=== PATIENT | female | born 1960 | race Caucasian/White ===

== ENCOUNTER → 2020-05-17 13:50 | Outpatient (BNVA) | payer MEDICARE, MEDICAID, SELFPAY | PROVIDERS: PCP Nurse Practitioner Family; Visit Provider Internal Medicine | DX: Z95.2 Presence of prosthetic heart valve (principal); Z51.81 Encounter for therapeutic drug level monitoring; Z79.01 Long term (current) use of anticoagulants | CPT/HCPCS: 85610 ==

== ENCOUNTER → 2020-06-05 13:46 | Outpatient (BNVA) | payer MEDICARE, MEDICAID, SELFPAY | PROVIDERS: PCP Nurse Practitioner Family; Visit Provider Internal Medicine | DX: Z95.2 Presence of prosthetic heart valve (principal); Z51.81 Encounter for therapeutic drug level monitoring; Z79.01 Long term (current) use of anticoagulants | CPT/HCPCS: 85610; 99211 ==

== ENCOUNTER → 2020-06-26 13:30 | Outpatient (BNVA) | payer MEDICARE, MEDICAID, SELFPAY | PROVIDERS: PCP Nurse Practitioner Family; Visit Provider Internal Medicine | DX: Z95.2 Presence of prosthetic heart valve (principal); Z51.81 Encounter for therapeutic drug level monitoring; Z79.01 Long term (current) use of anticoagulants | CPT/HCPCS: 85610; 99211 ==

== ENCOUNTER → 2020-07-18 13:40 | Outpatient (BNVA) | payer MEDICARE, MEDICAID, SELFPAY | PROVIDERS: PCP Nurse Practitioner Family; Referring Provider Nurse Practitioner Family; Visit Provider Internal Medicine | DX: Z95.2 Presence of prosthetic heart valve (principal); Z51.81 Encounter for therapeutic drug level monitoring; Z79.01 Long term (current) use of anticoagulants | CPT/HCPCS: 85610; 99211 ==

== ENCOUNTER → 2020-08-01 13:24 | Outpatient (BNVA) | payer MEDICARE, MEDICAID, SELFPAY | PROVIDERS: PCP Nurse Practitioner Family; Visit Provider Internal Medicine | DX: Z95.2 Presence of prosthetic heart valve (principal); Z79.01 Long term (current) use of anticoagulants; Z51.81 Encounter for therapeutic drug level monitoring | CPT/HCPCS: 85610; 99211 ==

== ENCOUNTER → 2020-08-27 13:21 | Outpatient (BNVA) | payer MEDICARE, MEDICAID, SELFPAY | PROVIDERS: PCP Nurse Practitioner Family; Visit Provider Internal Medicine | DX: Z95.2 Presence of prosthetic heart valve (principal); Z51.81 Encounter for therapeutic drug level monitoring; Z79.01 Long term (current) use of anticoagulants | CPT/HCPCS: 85610; 99211 ==

== ENCOUNTER → 2020-09-26 13:41 | Outpatient (BNVA) | payer MEDICARE, MEDICAID, SELFPAY | PROVIDERS: PCP Nurse Practitioner Family; Visit Provider Internal Medicine | DX: Z95.2 Presence of prosthetic heart valve (principal); Z51.81 Encounter for therapeutic drug level monitoring; Z79.01 Long term (current) use of anticoagulants | CPT/HCPCS: 85610; 99211 ==

== ENCOUNTER → 2020-10-08 13:02 | Outpatient (BNVA) | payer MEDICARE, MEDICAID, SELFPAY | PROVIDERS: PCP Nurse Practitioner Family; Visit Provider Internal Medicine | DX: Z95.2 Presence of prosthetic heart valve (principal); Z51.81 Encounter for therapeutic drug level monitoring; Z79.01 Long term (current) use of anticoagulants | CPT/HCPCS: 85610; 99211 ==

== ENCOUNTER → 2020-10-29 13:03 | Outpatient (BNVA) | payer MEDICARE, MEDICAID, SELFPAY | PROVIDERS: PCP Nurse Practitioner Family; Visit Provider Internal Medicine | DX: Z95.2 Presence of prosthetic heart valve (principal); Z51.81 Encounter for therapeutic drug level monitoring; Z79.01 Long term (current) use of anticoagulants | CPT/HCPCS: 85610; 99211 ==

== ENCOUNTER → 2020-11-19 13:01 | Outpatient (BNVA) | payer MEDICARE, MEDICAID, SELFPAY | PROVIDERS: PCP Nurse Practitioner Family; Visit Provider Internal Medicine | DX: Z95.2 Presence of prosthetic heart valve (principal); Z79.01 Long term (current) use of anticoagulants; Z51.81 Encounter for therapeutic drug level monitoring | CPT/HCPCS: 85610; 99211 ==

== ENCOUNTER → 2020-12-11 13:16 | Outpatient (BNVA) | payer MEDICARE, MEDICAID, SELFPAY | PROVIDERS: PCP Nurse Practitioner Family; Visit Provider Internal Medicine | DX: Z95.2 Presence of prosthetic heart valve (principal); Z51.81 Encounter for therapeutic drug level monitoring; Z79.01 Long term (current) use of anticoagulants | CPT/HCPCS: 85610; 99211 ==

== ENCOUNTER → 2020-12-25 13:06 | Outpatient (BNVA) | payer MEDICARE, MEDICAID, SELFPAY | PROVIDERS: PCP Nurse Practitioner Family; Visit Provider Internal Medicine | DX: Z95.2 Presence of prosthetic heart valve (principal); Z51.81 Encounter for therapeutic drug level monitoring; Z79.01 Long term (current) use of anticoagulants | CPT/HCPCS: 85610; 99211 ==

== ENCOUNTER → 2021-01-15 13:01 | Outpatient (BNVA) | payer MEDICARE, MEDICAID, SELFPAY | PROVIDERS: PCP Nurse Practitioner Family; Visit Provider Internal Medicine | DX: Z95.2 Presence of prosthetic heart valve (principal); Z51.81 Encounter for therapeutic drug level monitoring; Z79.01 Long term (current) use of anticoagulants | CPT/HCPCS: 85610; 99211 ==

== ENCOUNTER → 2021-02-12 13:01 | Outpatient (BNVA) | payer OTHER, SELFPAY | PROVIDERS: PCP Nurse Practitioner Family; Visit Provider Internal Medicine | DX: Z95.2 Presence of prosthetic heart valve (principal); Z51.81 Encounter for therapeutic drug level monitoring; Z79.01 Long term (current) use of anticoagulants | CPT/HCPCS: 85610; 99211 ==

== ENCOUNTER → 2021-03-13 13:04 | Outpatient (BNVA) | payer OTHER, SELFPAY | PROVIDERS: PCP Nurse Practitioner Family; Visit Provider Internal Medicine | DX: Z95.2 Presence of prosthetic heart valve (principal); Z51.81 Encounter for therapeutic drug level monitoring; Z79.01 Long term (current) use of anticoagulants | CPT/HCPCS: 85610; 99211 ==

== ENCOUNTER → 2021-04-10 13:02 | Outpatient (BNVA) | payer OTHER, SELFPAY | PROVIDERS: PCP Nurse Practitioner Family; Visit Provider Internal Medicine | DX: Z95.2 Presence of prosthetic heart valve (principal); Z51.81 Encounter for therapeutic drug level monitoring; Z79.01 Long term (current) use of anticoagulants | CPT/HCPCS: 85610; 99211 ==

== ENCOUNTER → 2021-05-13 13:05 | Outpatient (BNVA) | payer MEDICARE, SELFPAY | PROVIDERS: PCP Nurse Practitioner Family; Visit Provider Internal Medicine | DX: Z95.2 Presence of prosthetic heart valve (principal); Z51.81 Encounter for therapeutic drug level monitoring; Z79.01 Long term (current) use of anticoagulants | CPT/HCPCS: 85610; 99211 ==

== ENCOUNTER → 2021-06-10 12:59 | Outpatient (BNVA) | payer OTHER, SELFPAY | PROVIDERS: PCP Nurse Practitioner Family; Visit Provider Internal Medicine | DX: Z95.2 Presence of prosthetic heart valve (principal); Z51.81 Encounter for therapeutic drug level monitoring; Z79.01 Long term (current) use of anticoagulants | CPT/HCPCS: 85610; 99211 ==

== ENCOUNTER → 2021-07-08 13:04 | Outpatient (BNVA) | payer MEDICARE, SELFPAY | PROVIDERS: PCP Nurse Practitioner Family; Visit Provider Internal Medicine | DX: Z95.2 Presence of prosthetic heart valve (principal); Z51.81 Encounter for therapeutic drug level monitoring; Z79.01 Long term (current) use of anticoagulants | CPT/HCPCS: 85610; 99211 ==

== ENCOUNTER → 2021-07-15 13:24 | Outpatient (BNVA) | payer MEDICARE, SELFPAY | PROVIDERS: PCP Nurse Practitioner Family; Visit Provider Internal Medicine | DX: Z95.2 Presence of prosthetic heart valve (principal); Z51.81 Encounter for therapeutic drug level monitoring; Z79.01 Long term (current) use of anticoagulants | CPT/HCPCS: 85610; 99211 ==

== ENCOUNTER → 2021-07-29 13:10 | Outpatient (BNVA) | payer MEDICARE, SELFPAY | PROVIDERS: PCP Nurse Practitioner Family; Visit Provider Internal Medicine | DX: Z95.2 Presence of prosthetic heart valve (principal); Z51.81 Encounter for therapeutic drug level monitoring; Z79.01 Long term (current) use of anticoagulants | CPT/HCPCS: 85610; 99211 ==

== ENCOUNTER → 2021-08-05 13:03 | Outpatient (BNVA) | payer MEDICARE, SELFPAY | PROVIDERS: PCP Nurse Practitioner Family; Visit Provider Internal Medicine | DX: Z95.2 Presence of prosthetic heart valve (principal); Z51.81 Encounter for therapeutic drug level monitoring; Z79.01 Long term (current) use of anticoagulants | CPT/HCPCS: 85610; 99211 ==

== ENCOUNTER → 2021-08-26 13:03 | Outpatient (BNVA) | payer MEDICARE, SELFPAY | PROVIDERS: PCP Nurse Practitioner Family; Visit Provider Internal Medicine | DX: Z95.2 Presence of prosthetic heart valve (principal); Z51.81 Encounter for therapeutic drug level monitoring; Z79.01 Long term (current) use of anticoagulants | CPT/HCPCS: 85610; 99211 ==

== ENCOUNTER → 2021-09-09 13:03 | Outpatient (BNVA) | payer MEDICARE, SELFPAY | PROVIDERS: PCP Nurse Practitioner Family; Visit Provider Internal Medicine | DX: Z95.2 Presence of prosthetic heart valve (principal); Z51.81 Encounter for therapeutic drug level monitoring; Z79.01 Long term (current) use of anticoagulants | CPT/HCPCS: 85610; 99211 ==

== ENCOUNTER → 2021-09-16 10:51 | Outpatient (BNVA) | payer MEDICARE, SELFPAY | PROVIDERS: PCP Nurse Practitioner Family; Visit Provider Internal Medicine | DX: Z95.2 Presence of prosthetic heart valve (principal); Z51.81 Encounter for therapeutic drug level monitoring; Z79.01 Long term (current) use of anticoagulants | CPT/HCPCS: 85610; 99211 ==

== ENCOUNTER → 2021-10-01 11:30 | Outpatient (BNVA) | payer MEDICARE, SELFPAY | PROVIDERS: PCP Nurse Practitioner Family; Visit Provider Internal Medicine | DX: Z95.2 Presence of prosthetic heart valve (principal); Z51.81 Encounter for therapeutic drug level monitoring; Z79.01 Long term (current) use of anticoagulants | CPT/HCPCS: 85610; 99211 ==

== ENCOUNTER → 2021-10-14 11:27 | Outpatient (BNVA) | payer MEDICARE, SELFPAY | PROVIDERS: PCP Nurse Practitioner Family; Visit Provider Internal Medicine | DX: Z95.2 Presence of prosthetic heart valve (principal); Z51.81 Encounter for therapeutic drug level monitoring; Z79.01 Long term (current) use of anticoagulants | CPT/HCPCS: 85610; 99211 ==

== ENCOUNTER → 2021-11-04 11:31 | Outpatient (BNVA) | payer OTHER, SELFPAY | PROVIDERS: PCP Nurse Practitioner Family; Visit Provider Internal Medicine | DX: Z95.2 Presence of prosthetic heart valve (principal); Z51.81 Encounter for therapeutic drug level monitoring; Z79.01 Long term (current) use of anticoagulants | CPT/HCPCS: 85610; 99211 ==

== ENCOUNTER → 2021-12-02 11:09 | Outpatient (BNVA) | payer MEDICARE, SELFPAY | PROVIDERS: PCP Nurse Practitioner Family; Visit Provider Internal Medicine | DX: Z95.2 Presence of prosthetic heart valve (principal); Z79.01 Long term (current) use of anticoagulants; Z51.81 Encounter for therapeutic drug level monitoring | CPT/HCPCS: 85610; 99211 ==

== ENCOUNTER → 2021-12-16 11:30 | Outpatient (BNVA) | payer MEDICARE, SELFPAY | PROVIDERS: PCP Nurse Practitioner Family; Visit Provider Internal Medicine | DX: Z95.2 Presence of prosthetic heart valve (principal); Z79.01 Long term (current) use of anticoagulants; Z51.81 Encounter for therapeutic drug level monitoring | CPT/HCPCS: 85610; 99211 ==

== ENCOUNTER → 2022-01-07 11:29 | Outpatient (BNVA) | payer MEDICARE, SELFPAY | PROVIDERS: PCP Nurse Practitioner Family; Visit Provider Internal Medicine | DX: Z95.2 Presence of prosthetic heart valve (principal); Z79.01 Long term (current) use of anticoagulants; Z51.81 Encounter for therapeutic drug level monitoring | CPT/HCPCS: 85610; 99211 ==

== ENCOUNTER → 2022-01-28 11:29 | Outpatient (BNVA) | payer MEDICARE, SELFPAY | PROVIDERS: PCP Nurse Practitioner Family; Visit Provider Internal Medicine | DX: Z95.2 Presence of prosthetic heart valve (principal); Z79.01 Long term (current) use of anticoagulants; Z51.81 Encounter for therapeutic drug level monitoring | CPT/HCPCS: 85610; 99211 ==

== ENCOUNTER → 2022-02-14 11:52 | Outpatient (BNVA) | payer MEDICARE, SELFPAY | PROVIDERS: PCP Nurse Practitioner Family; Visit Provider Internal Medicine | DX: Z95.2 Presence of prosthetic heart valve (principal); Z79.01 Long term (current) use of anticoagulants; Z51.81 Encounter for therapeutic drug level monitoring | CPT/HCPCS: 85610; 99211 ==

== ENCOUNTER → 2022-03-10 11:35 | Outpatient (BNVA) | payer MEDICARE, SELFPAY | PROVIDERS: PCP Nurse Practitioner Family; Visit Provider Internal Medicine | DX: Z95.2 Presence of prosthetic heart valve (principal); Z79.01 Long term (current) use of anticoagulants; Z51.81 Encounter for therapeutic drug level monitoring | CPT/HCPCS: 85610; 99211 ==

== ENCOUNTER → 2022-04-11 11:08 | Outpatient (BNVA) | payer MEDICARE, SELFPAY | PROVIDERS: PCP Nurse Practitioner Family; Visit Provider Internal Medicine | DX: Z95.2 Presence of prosthetic heart valve (principal); Z79.01 Long term (current) use of anticoagulants; Z51.81 Encounter for therapeutic drug level monitoring | CPT/HCPCS: 85610; 99211 ==

== ENCOUNTER → 2022-05-05 11:26 | Outpatient (BNVA) | payer MEDICARE, SELFPAY | PROVIDERS: PCP Nurse Practitioner Family; Visit Provider Internal Medicine | DX: Z95.2 Presence of prosthetic heart valve (principal); Z79.01 Long term (current) use of anticoagulants; Z51.81 Encounter for therapeutic drug level monitoring | CPT/HCPCS: 85610; 99211 ==

== ENCOUNTER → 2022-06-02 11:34 | Outpatient (BNVA) | payer MEDICARE, SELFPAY | PROVIDERS: PCP Nurse Practitioner Family; Visit Provider Internal Medicine | DX: Z95.2 Presence of prosthetic heart valve (principal); Z51.81 Encounter for therapeutic drug level monitoring; Z79.01 Long term (current) use of anticoagulants | CPT/HCPCS: 85610; 99211 ==

== ENCOUNTER → 2022-06-16 11:01 | Outpatient (BNVA) | payer MEDICARE, SELFPAY | PROVIDERS: PCP Nurse Practitioner Family; Visit Provider Internal Medicine | DX: Z95.2 Presence of prosthetic heart valve (principal); Z79.01 Long term (current) use of anticoagulants; Z51.81 Encounter for therapeutic drug level monitoring | CPT/HCPCS: 85610; 99211 ==

== ENCOUNTER → 2022-07-14 11:39 | Outpatient (BNVA) | payer MEDICARE, SELFPAY | PROVIDERS: PCP Nurse Practitioner Family; Visit Provider Internal Medicine | DX: Z95.2 Presence of prosthetic heart valve (principal); Z79.01 Long term (current) use of anticoagulants; Z51.81 Encounter for therapeutic drug level monitoring | CPT/HCPCS: 85610; 99211 ==

== ENCOUNTER → 2022-08-12 11:33 | Outpatient (BNVA) | payer MEDICARE, SELFPAY | PROVIDERS: PCP Nurse Practitioner Family; Visit Provider Internal Medicine | DX: Z95.2 Presence of prosthetic heart valve (principal); Z79.01 Long term (current) use of anticoagulants; Z51.81 Encounter for therapeutic drug level monitoring | CPT/HCPCS: 85610; 99211 ==

== ENCOUNTER → 2022-09-16 11:31 | Outpatient (BNVA) | payer MEDICARE, SELFPAY | PROVIDERS: PCP Nurse Practitioner Family; Visit Provider Internal Medicine | DX: Z95.2 Presence of prosthetic heart valve (principal); Z79.01 Long term (current) use of anticoagulants; Z51.81 Encounter for therapeutic drug level monitoring | CPT/HCPCS: 85610; 99211 ==

== ENCOUNTER → 2022-09-30 11:11 | Outpatient (BNVA) | payer MEDICARE, SELFPAY | PROVIDERS: PCP Nurse Practitioner Family; Visit Provider Internal Medicine | DX: Z95.2 Presence of prosthetic heart valve (principal); Z79.01 Long term (current) use of anticoagulants; Z51.81 Encounter for therapeutic drug level monitoring | CPT/HCPCS: 85610; 99211 ==

== ENCOUNTER → 2022-10-27 11:12 | Outpatient (BNVA) | payer MEDICARE, SELFPAY | PROVIDERS: PCP Nurse Practitioner Family; Visit Provider Internal Medicine | DX: Z95.2 Presence of prosthetic heart valve (principal); Z79.01 Long term (current) use of anticoagulants; Z51.81 Encounter for therapeutic drug level monitoring | CPT/HCPCS: 85610; 99211 ==

== ENCOUNTER → 2022-11-26 13:30 | Outpatient (BNVA) | payer MEDICARE, SELFPAY | PROVIDERS: PCP Nurse Practitioner Family; Visit Provider Internal Medicine | DX: Z95.2 Presence of prosthetic heart valve (principal); Z79.01 Long term (current) use of anticoagulants; Z51.81 Encounter for therapeutic drug level monitoring | CPT/HCPCS: 85610; 99211 ==

== ENCOUNTER → 2022-12-23 11:21 | Outpatient (BNVA) | payer MEDICARE, SELFPAY | PROVIDERS: PCP Nurse Practitioner Family; Visit Provider Internal Medicine | DX: Z95.2 Presence of prosthetic heart valve (principal); Z79.01 Long term (current) use of anticoagulants; Z51.81 Encounter for therapeutic drug level monitoring | CPT/HCPCS: 85610; 99211 ==

== ENCOUNTER → 2023-01-26 11:33 | Outpatient (BNVA) | payer MEDICARE, SELFPAY | PROVIDERS: PCP Nurse Practitioner Family; Visit Provider Internal Medicine | DX: Z95.2 Presence of prosthetic heart valve (principal); Z79.01 Long term (current) use of anticoagulants; Z51.81 Encounter for therapeutic drug level monitoring | CPT/HCPCS: 85610; 99211 ==

== ENCOUNTER 2023-02-25 11:32 | Outpatient (AMB) | payer MEDICARE, SELFPAY ==
[2023-02-25 11:40] LABS: Prothrombin Time Whole Bld POC 50.1 sec (11.1-13.5); ~PT, ~INR - Anti Coag Clinic 4.2 (0.9-1.1)
--- NOTE | 2023-02-25 11:47 | MHC.OFFVISCO ---
Intake Intake Visit Reasons: Anticoagulation Allergies Penicillins Allergy (Verified 02/25/23 11:36) CANT REMEMBER Medication List - Last Reconciled 02/25/23 by Cherry Parker, RN acetaminophen ER (Arthritis Pain Reliever) 650 mg PO Q8H ergocalciferol (vitamin D2) 1,250 mcg PO QWEEK omeprazole 40 mg PO DAILY warfarin 7.5 mg See Protocol PO DAILY Nursing Note NO CP,SOB,DIET/MED CHANGES,FALLS OR SX OF BLEEDING. 3.75MGM 2 DAYS THEN RESUME USUAL DOSING AND FOLLOW-UP IN 2 WEEKS. PT.WILL BE SURE TO HAVE GREENS TODAY GOOD UNDERSTANDING OF DOSING INSTR. 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
== END 2023-02-25 11:52 | disposition home or self-care (01) ==
LOC: HO.ACS 11:32
PROVIDERS: PCP Nurse Practitioner Family; Visit Provider Internal Medicine
DX: Z79.01 Long term (current) use of anticoagulants (principal)

== ENCOUNTER → 2023-02-25 11:32 | Outpatient (BNVA) | payer MEDICARE, SELFPAY | PROVIDERS: PCP Nurse Practitioner Family; Visit Provider Internal Medicine | DX: Z95.2 Presence of prosthetic heart valve (principal); Z79.01 Long term (current) use of anticoagulants; Z51.81 Encounter for therapeutic drug level monitoring | CPT/HCPCS: 85610; 99211 ==

== ENCOUNTER 2023-03-09 10:51 | Outpatient (AMB) | payer MEDICARE, SELFPAY ==
--- NOTE | 2023-03-09 10:59 | MHC.OFFVISCO ---
Intake Intake Visit Reasons: Anticoagulation Allergies Penicillins Allergy (Verified 03/09/23 10:55) CANT REMEMBER Medication List - Last Reconciled 03/09/23 by Becka Jarrett RN acetaminophen ER (Arthritis Pain Reliever) 650 mg PO Q8H ergocalciferol (vitamin D2) 1,250 mcg PO QWEEK omeprazole 40 mg PO DAILY warfarin 7.5 mg See Protocol PO DAILY Nursing Note INR 4.3-?? out of therapeutic range Medications and supplements reviewed Patient status: prev inr elev, pt unsure why elev, denies tylenol, etoh or new meds Medications or supplements: no changes Diet: appetite is good, eating tomatoes and grapes Denies any signs and symptoms of bleeding or clotting or unusual bruising Bleeding, bruising, clotting discussed - aware at risk Nutritional guidance given: eat greens to lower inr, no reds for 2 days Dose: hold dose today then cont reg 7.5mg x 6, 11.25mg x 1 F/U INR Date : thu03/18/23?? Patient verbalizing understanding of instructions given. Coding Level of Care Code Est Patient Level 1 Diagnoses Current use of anticoagulant therapy Z79.01 Assessment & Plan Assessment & Plan (1) Current use of anticoagulant therapy: Code(s): Z79.01 - alf (current) use of 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
[2023-03-09 11:00] LABS: Prothrombin Time Whole Bld POC 52.1 sec (11.1-13.5); ~PT, ~INR - Anti Coag Clinic 4.3 (0.9-1.1)
== END 2023-03-09 11:06 | disposition home or self-care (01) ==
LOC: HO.ACS 10:51
PROVIDERS: PCP Nurse Practitioner Family; Visit Provider Internal Medicine
DX: Z79.01 Long term (current) use of anticoagulants (principal)

== ENCOUNTER → 2023-03-09 10:51 | Outpatient (BNVA) | payer MEDICARE, SELFPAY | PROVIDERS: PCP Nurse Practitioner Family; Visit Provider Internal Medicine | DX: Z95.2 Presence of prosthetic heart valve (principal); Z51.81 Encounter for therapeutic drug level monitoring; Z79.01 Long term (current) use of anticoagulants | CPT/HCPCS: 85610; 99211 ==

== ENCOUNTER 2023-03-18 11:02 | Outpatient (AMB) | payer MEDICARE, SELFPAY ==
[2023-03-18 11:07] LABS: ~PT, ~INR - Anti Coag Clinic 3.5 (0.9-1.1)
--- NOTE | 2023-03-18 11:15 | MHC.OFFVISCO ---
Intake Intake Visit Reasons: Anticoagulation Allergies Penicillins Allergy (Verified 03/18/23 11:02) CANT REMEMBER Medication List - Last Reconciled 03/18/23 by Cherry Parker, RN acetaminophen ER (Arthritis Pain Reliever) 650 mg PO Q8H ergocalciferol (vitamin D2) 1,250 mcg PO QWEEK omeprazole 40 mg PO DAILY warfarin 7.5 mg See Protocol PO DAILY Nursing Note NO CP,SOB,DIET/MED CHANGES,FALLS OR SX OF BLEEDING. CONTINUE PRESENT DOSE AND FOLLOW-UP IN 4 WEEKS. GOOD UNDERSTANDING IOF DOSING INSTR,. 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
== END 2023-03-18 11:17 | disposition home or self-care (01) ==
LOC: HO.ACS 11:02
PROVIDERS: PCP Nurse Practitioner Family; Visit Provider Internal Medicine
DX: Z79.01 Long term (current) use of anticoagulants (principal)

== ENCOUNTER → 2023-03-18 11:02 | Outpatient (BNVA) | payer MEDICARE, SELFPAY | PROVIDERS: PCP Nurse Practitioner Family; Visit Provider Internal Medicine | DX: Z95.2 Presence of prosthetic heart valve (principal); Z79.01 Long term (current) use of anticoagulants; Z51.81 Encounter for therapeutic drug level monitoring | CPT/HCPCS: 85610; 99211 ==

== ENCOUNTER 2023-04-01 10:52 | Outpatient (AMB) | payer MEDICARE, SELFPAY ==
[2023-04-01 11:01] LABS: Prothrombin Time Whole Bld POC 55.7 sec (11.1-13.5); ~PT, ~INR - Anti Coag Clinic 4.6 (0.9-1.1)
--- NOTE | 2023-04-01 13:28 | MHC.OFFVISCO ---
Intake Intake Visit Reasons: Anticoagulation Allergies Penicillins Allergy (Verified 04/01/23 10:53) CANT REMEMBER Medication List - Last Reconciled 04/01/23 by Cherry Parker, RN acetaminophen ER (Arthritis Pain Reliever) 650 mg PO Q8H ergocalciferol (vitamin D2) 1,250 mcg PO QWEEK omeprazole 40 mg PO DAILY warfarin 7.5 mg See Protocol PO DAILY Nursing Note PT.DENIES ANY CP,SOB,DIET/MED CHANGES,FALLS OR SX OF BLEEDING. HOLD WARFARIN TODAY THEN RESUME PRESRENT DOSE AND FOLLOW-UP IN 1 WEEK. GREENEllie TODAY VERIFIED WITH PT.THAT WARFARIN TABS ARE 7.5MGM. Coding Level of Care Code Est Patient Level 1 Diagnoses Current use of anticoagulant therapy Z79.01 Assessment & Plan Assessment & Plan (1) Current use of anticoagulant therapy: Code(s): Z79.01 - USP (current) use of 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
== END 2023-04-01 13:31 | disposition home or self-care (01) ==
LOC: HO.ACS 10:52
PROVIDERS: PCP Nurse Practitioner Family; Visit Provider Internal Medicine
DX: Z79.01 Long term (current) use of anticoagulants (principal)

== ENCOUNTER → 2023-04-01 10:52 | Outpatient (BNVA) | payer MEDICARE, SELFPAY | PROVIDERS: PCP Nurse Practitioner Family; Visit Provider Internal Medicine | DX: Z95.2 Presence of prosthetic heart valve (principal); Z79.01 Long term (current) use of anticoagulants; Z51.81 Encounter for therapeutic drug level monitoring | CPT/HCPCS: 85610; 99211 ==

== ENCOUNTER 2023-04-08 10:46 | Outpatient (AMB) | payer MEDICARE, SELFPAY ==
[2023-04-08 10:53] LABS: Prothrombin Time Whole Bld POC 34.4 sec (11.1-13.5); ~PT, ~INR - Anti Coag Clinic 2.9 (0.9-1.1)
--- NOTE | 2023-04-08 10:56 | MHC.OFFVISCO ---
Intake Intake Visit Reasons: Anticoagulation Allergies Penicillins Allergy (Verified 04/08/23 10:48) CANT REMEMBER Medication List - Last Reconciled 04/08/23 by Cherry Parker RN acetaminophen ER (Arthritis Pain Reliever) 650 mg PO Q8H ergocalciferol (vitamin D2) 1,250 mcg PO QWEEK omeprazole 40 mg PO DAILY warfarin 7.5 mg See Protocol PO DAILY Nursing Note NO CP,SOB,DIET/MED CHANGES,FALLS OR SX OF BLEEDING. CONTINUE PRESENT DOSE AND FOLLOW-UP IN 2 WEEKS. GOOD UNMDERSTANDING OF DOSING INSTR. 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
== END 2023-04-08 10:59 | disposition home or self-care (01) ==
LOC: HO.ACS 10:46
PROVIDERS: PCP Nurse Practitioner Family; Visit Provider Internal Medicine
DX: Z79.01 Long term (current) use of anticoagulants (principal)

== ENCOUNTER → 2023-04-08 10:46 | Outpatient (BNVA) | payer MEDICARE, SELFPAY | PROVIDERS: PCP Nurse Practitioner Family; Visit Provider Internal Medicine | DX: Z95.2 Presence of prosthetic heart valve (principal); Z79.01 Long term (current) use of anticoagulants; Z51.81 Encounter for therapeutic drug level monitoring | CPT/HCPCS: 85610; 99211 ==

== ENCOUNTER 2023-04-22 13:01 | Outpatient (AMB) | payer MEDICARE, SELFPAY ==
[2023-04-22 13:12] LABS: Prothrombin Time Whole Bld POC 49.8 sec (11.1-13.5); ~PT, ~INR - Anti Coag Clinic 4.1 (0.9-1.1)
--- NOTE | 2023-04-22 13:14 | MHC.OFFVISCO ---
Intake Intake Visit Reasons: Anticoagulation Allergies Penicillins Allergy (Verified 04/22/23 13:05) CANT REMEMBER Medication List - Last Reconciled 04/22/23 by Dacia Rae RN acetaminophen ER (Arthritis Pain Reliever) 650 mg PO Q8H carboxymethylcellulose sodium 0.5% drps ophthalmic (eye) ergocalciferol (vitamin D2) 1,250 mcg PO QWEEK omeprazole 40 mg PO DAILY omeprazole 20 mg PO DAILY warfarin 7.5 mg See Protocol PO DAILY Nursing Note INR 4.1? out of therapeutic range Medications and supplements reviewed Patient status: Well, may not have had enough greens, INR has been trending upward, decrease dose for 2 weeks Medications or supplements: omeprazole decreased and she only takes it PRN Diet: no changes recently had red smoothie Denies any signs and symptoms of bleeding or clotting or unusual bruising Bleeding, bruising, clotting discussed Nutritional guidance given: enc cooked greens to lower the INR Dose: decrease dose x 2 weeks to 7.5mg daily F/U INR Date : 2 wks 05/06/23 ?? Patient verbalizing understanding of instructions given. 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
== END 2023-04-22 13:25 | disposition home or self-care (01) ==
LOC: HO.ACS 13:01
PROVIDERS: PCP Nurse Practitioner Family; Visit Provider Internal Medicine
DX: Z79.01 Long term (current) use of anticoagulants (principal)

== ENCOUNTER → 2023-04-22 13:01 | Outpatient (BNVA) | payer MEDICARE, SELFPAY | PROVIDERS: PCP Nurse Practitioner Family; Visit Provider Internal Medicine | DX: Z95.2 Presence of prosthetic heart valve (principal); Z79.01 Long term (current) use of anticoagulants; Z51.81 Encounter for therapeutic drug level monitoring | CPT/HCPCS: 85610; 99211 ==

== ENCOUNTER 2023-05-06 10:49 | Outpatient (AMB) | payer MEDICARE, SELFPAY ==
--- NOTE | 2023-05-06 10:58 | MHC.OFFVISCO ---
Intake Intake Visit Reasons: Anticoagulation Allergies Penicillins Allergy (Verified 05/06/23 10:55) CANT REMEMBER Medication List - Last Reconciled 05/06/23 by Becka Jarrett RN acetaminophen ER (Arthritis Pain Reliever) 650 mg PO Q8H carboxymethylcellulose sodium 0.5% drps ophthalmic (eye) ergocalciferol (vitamin D2) 1,250 mcg PO QWEEK omeprazole 20 mg PO DAILY warfarin 7.5 mg See Protocol PO DAILY Nursing Note INR: 2.9- in therapeutic range Medications and supplements reviewed- no changes No changes in health, diet, medications, or supplements, Denies any signs and symptoms of bleeding or bruising or clotting. Bleeding, bruising, clotting discussed Nutritional guidance given Dose: 7.5mg x 7 F/U INR: 3 weeks Patient verbalizes understanding of instructions given Coding Level of Care Code Est Patient Level 1 Diagnoses Current use of anticoagulant therapy Z79.01 Results AMB INR Fingerstick AMB INR Fingerstick 2.9 Last Edit by Becka Jarrett RN on 05/06/23 10:59 Assessment & Plan Assessment & Plan (1) Current use of anticoagulant therapy: Code(s): Z79.01 - longterm (current) use of 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
[2023-05-06 10:59] LABS: Prothrombin Time Whole Bld POC 35.1 sec (11.1-13.5); ~PT, ~INR - Anti Coag Clinic 2.9 (0.9-1.1)
== END 2023-05-06 11:02 | disposition home or self-care (01) ==
LOC: HO.ACS 10:49
PROVIDERS: PCP Nurse Practitioner Family; Visit Provider Internal Medicine
DX: Z79.01 Long term (current) use of anticoagulants (principal)

== ENCOUNTER → 2023-05-06 10:49 | Outpatient (BNVA) | payer MEDICARE, SELFPAY | PROVIDERS: PCP Nurse Practitioner Family; Visit Provider Internal Medicine | DX: Z95.2 Presence of prosthetic heart valve (principal); Z79.01 Long term (current) use of anticoagulants; Z51.81 Encounter for therapeutic drug level monitoring | CPT/HCPCS: 85610; 99211 ==

== ENCOUNTER 2023-05-27 10:59 | Outpatient (AMB) | payer MEDICARE, SELFPAY ==
--- NOTE | 2023-05-27 11:08 | MHC.OFFVISCO ---
Intake Intake Visit Reasons: Anticoagulation Allergies Penicillins Allergy (Verified 05/27/23 11:03) CANT REMEMBER Medication List - Last Reconciled 05/27/23 by Becka Jarrett RN acetaminophen ER (Arthritis Pain Reliever) 650 mg PO Q8H carboxymethylcellulose sodium 0.5% drps ophthalmic (eye) ergocalciferol (vitamin D2) 1,250 mcg PO QWEEK omeprazole 20 mg PO DAILY warfarin 7.5 mg See Protocol PO DAILY Nursing Note INR 4.1-? out of therapeutic range- 2.5-3.5 Medications and supplements reviewed Patient status: no c.o Medications or supplements: no changes, had covid booster on 05/20/23 Diet: less Denies any signs and symptoms of bleeding or clotting or unusual bruising Bleeding, bruising, clotting discussed Nutritional guidance given: eat greens for 2 days, no reds for 2 days Dose: 3.75mg today then 7.5mg x 7 F/U INR Date : 2 weeks?? Patient verbalizing understanding of instructions given. 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
[2023-05-27 11:09] LABS: ~PT, ~INR - Anti Coag Clinic 4.1 (0.9-1.1)
== END 2023-05-27 11:14 | disposition home or self-care (01) ==
LOC: HO.ACS 10:59
PROVIDERS: PCP Nurse Practitioner Family; Visit Provider Internal Medicine
DX: Z79.01 Long term (current) use of anticoagulants (principal)

== ENCOUNTER → 2023-05-27 10:59 | Outpatient (BNVA) | payer MEDICARE, SELFPAY | PROVIDERS: PCP Nurse Practitioner Family; Visit Provider Internal Medicine | DX: Z95.2 Presence of prosthetic heart valve (principal); Z79.01 Long term (current) use of anticoagulants; Z51.81 Encounter for therapeutic drug level monitoring | CPT/HCPCS: 85610; 99211 ==

== ENCOUNTER 2023-06-10 11:22 | Outpatient (AMB) | payer MEDICARE, SELFPAY ==
[2023-06-10 11:29] LABS: Prothrombin Time Whole Bld POC 48.7 sec (11.1-13.5); ~PT, ~INR - Anti Coag Clinic 4.1 (0.9-1.1)
--- NOTE | 2023-06-10 11:39 | MHC.OFFVISCO ---
Intake Intake Visit Reasons: Anticoagulation Allergies Penicillins Allergy (Verified 06/10/23 11:24) CANT REMEMBER Medication List - Last Reconciled 06/10/23 by Cherry Parker, RN acetaminophen ER (Arthritis Pain Reliever) 650 mg PO Q8H carboxymethylcellulose sodium 0.5% drps ophthalmic (eye) ergocalciferol (vitamin D2) 1,250 mcg PO QWEEK omeprazole 20 mg PO DAILY warfarin 7.5 mg See Protocol PO DAILY Nursing Note NO CP,SOB,DIET/MED CHANGES,FALLS OR SX OF BLEEDING. REDUCE WEEKLY DOSE AND FOLLOW-UP IN 1 WEEK. GOOD UNDERSTANDING OF DOSING INSTR. Coding Level of Care Code Est Patient Level 1 Diagnoses Current use of anticoagulant therapy Z79.01 Assessment & Plan Assessment & Plan (1) Current use of anticoagulant therapy: Code(s): Z79.01 - FPC (current) use of 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
== END 2023-06-10 11:41 | disposition home or self-care (01) ==
LOC: HO.ACS 11:22
PROVIDERS: PCP Nurse Practitioner Family; Visit Provider Internal Medicine
DX: Z79.01 Long term (current) use of anticoagulants (principal)

== ENCOUNTER → 2023-06-10 11:22 | Outpatient (BNVA) | payer MEDICARE, SELFPAY | PROVIDERS: PCP Nurse Practitioner Family; Visit Provider Internal Medicine | DX: Z95.2 Presence of prosthetic heart valve (principal); Z79.01 Long term (current) use of anticoagulants; Z51.81 Encounter for therapeutic drug level monitoring | CPT/HCPCS: 85610; 99211 ==

== ENCOUNTER 2023-06-17 10:59 | Outpatient (AMB) | payer MEDICARE, SELFPAY ==
[2023-06-17 11:04] LABS: ~PT, ~INR - Anti Coag Clinic 2.7 (0.9-1.1)
--- NOTE | 2023-06-17 11:09 | MHC.OFFVISCO ---
Intake Intake Visit Reasons: Anticoagulation Allergies Penicillins Allergy (Verified 06/17/23 11:00) CANT REMEMBER Medication List - Last Reconciled 06/17/23 by Cherry Parker, RN acetaminophen ER (Arthritis Pain Reliever) 650 mg PO Q8H carboxymethylcellulose sodium 0.5% drps ophthalmic (eye) ergocalciferol (vitamin D2) 1,250 mcg PO QWEEK omeprazole 20 mg PO DAILY warfarin 7.5 mg See Protocol PO DAILY Nursing Note NO CP,SOB,DIET/MED CHANGES,FALLS OR SX OF BLEEDING. CONTINUE PRESENT DOSE AND FOLLOW-UP IN 2 WEEKS. GOOD UNDERSTANDING OF DOSING INSTR. 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
== END 2023-06-17 11:11 | disposition home or self-care (01) ==
LOC: HO.ACS 10:59
PROVIDERS: PCP Nurse Practitioner Family; Visit Provider Internal Medicine
DX: Z79.01 Long term (current) use of anticoagulants (principal)

== ENCOUNTER → 2023-06-17 10:59 | Outpatient (BNVA) | payer MEDICARE, SELFPAY | PROVIDERS: PCP Nurse Practitioner Family; Visit Provider Internal Medicine | DX: Z95.2 Presence of prosthetic heart valve (principal); Z79.01 Long term (current) use of anticoagulants; Z51.81 Encounter for therapeutic drug level monitoring | CPT/HCPCS: 85610; 99211 ==

== ENCOUNTER 2023-07-01 10:52 | Outpatient (AMB) | payer MEDICARE, SELFPAY ==
[2023-07-01 11:03] LABS: Prothrombin Time Whole Bld POC 39.7 sec (11.1-13.5); ~PT, ~INR - Anti Coag Clinic 3.3 (0.9-1.1)
--- NOTE | 2023-07-01 11:06 | MHC.OFFVISCO ---
Intake Intake Visit Reasons: Anticoagulation Allergies Penicillins Allergy (Verified 07/01/23 10:55) CANT REMEMBER Medication List - Last Reconciled 07/01/23 by Cherry Parker RN acetaminophen ER (Arthritis Pain Reliever) 650 mg PO Q8H carboxymethylcellulose sodium 0.5% drps ophthalmic (eye) ergocalciferol (vitamin D2) 1,250 mcg PO QWEEK omeprazole 20 mg PO DAILY warfarin 7.5 mg See Protocol PO DAILY Nursing Note NO CP,SOB,DIET/MED CHANGES,FALLS OR SX OF BLEEDING. CONTINUE PRESENT DOSE AND FOLLOW-UP IN 3 WEEKS. GOOD UNDERSTANDING OF DOSING INSTR. Coding Level of Care Code Est Patient Level 1 Results AMB INR Fingerstick AMB INR Fingerstick 3.3 Last Edit by Cherry Parker RN on 07/01/23 11:03
== END 2023-07-01 11:08 | disposition home or self-care (01) ==
LOC: HO.ACS 10:52
PROVIDERS: PCP Nurse Practitioner Family; Visit Provider Internal Medicine
DX: Z79.01 Long term (current) use of anticoagulants (principal)

== ENCOUNTER → 2023-07-01 10:52 | Outpatient (BNVA) | payer MEDICARE, SELFPAY | PROVIDERS: PCP Nurse Practitioner Family; Visit Provider Internal Medicine | DX: Z95.2 Presence of prosthetic heart valve (principal); Z51.81 Encounter for therapeutic drug level monitoring; Z79.01 Long term (current) use of anticoagulants | CPT/HCPCS: 85610; 99211 ==

== ENCOUNTER 2023-07-22 10:55 | Outpatient (AMB) | payer MEDICARE, SELFPAY ==
[2023-07-22 11:00] LABS: Prothrombin Time Whole Bld POC 39.4 sec (11.1-13.5); ~PT, ~INR - Anti Coag Clinic 3.3 (0.9-1.1)
--- NOTE | 2023-07-22 11:04 | MHC.OFFVISCO ---
Intake Intake Visit Reasons: Anticoagulation Allergies Penicillins Allergy (Verified 07/22/23 10:55) CANT REMEMBER Medication List - Last Reconciled 07/22/23 by Cherry Parker, RN acetaminophen ER (Arthritis Pain Reliever) 650 mg PO Q8H carboxymethylcellulose sodium 0.5% drps ophthalmic (eye) ergocalciferol (vitamin D2) 1,250 mcg PO QWEEK omeprazole 20 mg PO DAILY warfarin 7.5 mg See Protocol PO DAILY Nursing Note NO CP,SOBV,DIRET/MED CHANGES,FALLS OR SX OF BLEEDING. CONTINUE PRESENT DOSE AND FOLLOW-UP IN 4 WEEKS. GOOD UNDERSTANDING OF DOSING INSTR. Coding Level of Care Code Est Patient Level 1 Diagnoses Current use of anticoagulant therapy Z79.01 Assessment & Plan Assessment & Plan (1) Current use of anticoagulant therapy: Code(s): Z79.01 - longterm (current) use of 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
== END 2023-07-22 11:05 | disposition home or self-care (01) ==
LOC: HO.ACS 10:55
PROVIDERS: PCP Nurse Practitioner Family; Visit Provider Internal Medicine
DX: Z79.01 Long term (current) use of anticoagulants (principal)

== ENCOUNTER → 2023-07-22 10:55 | Outpatient (BNVA) | payer MEDICARE, SELFPAY | PROVIDERS: PCP Nurse Practitioner Family; Visit Provider Internal Medicine | DX: Z95.2 Presence of prosthetic heart valve (principal); Z79.01 Long term (current) use of anticoagulants; Z51.81 Encounter for therapeutic drug level monitoring | CPT/HCPCS: 85610; 99211 ==

== ENCOUNTER 2023-08-19 10:55 | Outpatient (AMB) | payer MEDICARE, SELFPAY ==
[2023-08-19 11:01] LABS: Prothrombin Time Whole Bld POC 33.1 sec (11.1-13.5); ~PT, ~INR - Anti Coag Clinic 2.8 (0.9-1.1)
--- NOTE | 2023-08-19 11:07 | MHC.OFFVISCO ---
Intake Intake Visit Reasons: Anticoagulation Allergies Penicillins Allergy (Verified 08/19/23 10:57) CANT REMEMBER Medication List - Last Reconciled 08/19/23 by Cherry Parker, RN acetaminophen ER (Arthritis Pain Reliever) 650 mg PO Q8H carboxymethylcellulose sodium 0.5% drps ophthalmic (eye) ergocalciferol (vitamin D2) 1,250 mcg PO QWEEK omeprazole 20 mg PO DAILY warfarin 7.5 mg See Protocol PO DAILY Nursing Note NO CP,SOB,DIET/MED CHANGES,FALLS OR SX OF BLEEDING. CONTINUE PRESENT DOSE AND FOLLOW-UP IN 4 WEEKS. GOOD UNDERSTANDING OF FOSING INSTR. 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
== END 2023-08-19 11:09 | disposition home or self-care (01) ==
LOC: HO.ACS 10:55
PROVIDERS: PCP Nurse Practitioner Family; Visit Provider Internal Medicine
DX: Z79.01 Long term (current) use of anticoagulants (principal)

== ENCOUNTER → 2023-08-19 10:55 | Outpatient (BNVA) | payer MEDICARE, SELFPAY | PROVIDERS: PCP Nurse Practitioner Family; Visit Provider Internal Medicine | DX: Z95.2 Presence of prosthetic heart valve (principal); Z79.01 Long term (current) use of anticoagulants; Z51.81 Encounter for therapeutic drug level monitoring | CPT/HCPCS: 85610; 99211 ==

== ENCOUNTER 2023-09-17 10:36 | Outpatient (AMB) | payer MEDICARE, SELFPAY ==
[2023-09-17 10:46] LABS: Prothrombin Time Whole Bld POC 35.7 sec (11.1-13.5)
--- NOTE | 2023-09-17 10:51 | MHC.OFFVISCO ---
Intake Intake Visit Reasons: Anticoagulation Allergies Penicillins Allergy (Verified 09/17/23 10:40) CANT REMEMBER Medication List - Last Reconciled 09/17/23 by Dacia Rae RN acetaminophen ER (Arthritis Pain Reliever) 650 mg PO Q8H carboxymethylcellulose sodium 0.5% drps ophthalmic (eye) ergocalciferol (vitamin D2) 1,250 mcg PO QWEEK omeprazole 20 mg PO DAILY warfarin 7.5 mg See Protocol PO DAILY Nursing Note INR: 3.0 in therapeutic range Medications and supplements reviewed No changes in health, diet, medications, or supplements, Denies any signs and symptoms of bleeding or bruising or clotting. Bleeding, bruising, clotting discussed Nutritional guidance given Dose: keep same 3.75mg x 1 day/ 7.5mg x 6 days F/U INR: 4 weeks Patient verbalizes understanding of instructions given Coding Level of Care Code Est Patient Level 1 Diagnoses Current use of anticoagulant therapy Z79.01 Assessment & Plan Assessment & Plan (1) Current use of anticoagulant therapy: Code(s): Z79.01 - custodial (current) use of 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
== END 2023-09-17 10:52 | disposition home or self-care (01) ==
LOC: HO.ACS 10:36
PROVIDERS: PCP Nurse Practitioner Family; Visit Provider Internal Medicine
DX: Z79.01 Long term (current) use of anticoagulants (principal)

== ENCOUNTER → 2023-09-17 10:36 | Outpatient (BNVA) | payer MEDICARE, MEDICAID, SELFPAY | PROVIDERS: PCP Nurse Practitioner Family; Visit Provider Internal Medicine | DX: Z95.2 Presence of prosthetic heart valve (principal); Z79.01 Long term (current) use of anticoagulants; Z51.81 Encounter for therapeutic drug level monitoring | CPT/HCPCS: 85610; 99211 ==

== ENCOUNTER 2023-10-15 10:51 | Outpatient (AMB) | payer MEDICARE, MEDICAID, SELFPAY ==
--- NOTE | 2023-10-15 11:03 | MHC.OFFVISCO ---
Intake Intake Visit Reasons: Anticoagulation Allergies Penicillins Allergy (Verified 10/15/23 10:52) CANT REMEMBER Medication List - Last Reconciled 10/15/23 by Dacia Rae RN acetaminophen ER (Arthritis Pain Reliever) 650 mg PO Q8H carboxymethylcellulose sodium 0.5% drps ophthalmic (eye) ergocalciferol (vitamin D2) 1,250 mcg PO QWEEK omeprazole 20 mg PO DAILY peg 3350-electrolytes 236-22.74-6.74 -5.86 gram mL PO warfarin 7.5 mg See Protocol PO DAILY Nursing Note INR: 2.7 in therapeutic range PT STATES SHE IS GOING TO HAVE A ROUTINE COLONOSCOPY AND THE MD STATED SHE IS GOING TO HOLD WARFARIN X 5 DAYS. DATE TO BE DETERMINED, Medications and supplements reviewed No changes in health, diet, medications, or supplements, Denies any signs and symptoms of bleeding or bruising or clotting. 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 ) Does the patient have a history of stroke?: No Has the patient had major bleeding or predisposition to bleeding?: No Does the patient have labile INRs?: No Is the patient over 65 years of age?: Yes Is the patient on medications that gives them a predisposition to bleeding?: Yes Does the patient use alcohol?: No HAS-BLED Score: 3 CHADSVASC Age: 66-74 Gender: Female Does the patient have a history of CHF?: No Does the patient have a history of Hypertension?: No Does the patient have a history of Stroke/TIA/Thromboembolism?: No Does the patient have a history of Vascular Disease (prior SC, PAD or aortic plaque)?: No Does the patient have a history of Diabetes?: No CHADS VACS Score: 2 Lenin Prediction Score Rsk VTE Active Cancer: No Previous VTE, excluding superficial vein thrombosis: No Reduced mobility: No 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 ) With-in last month Trauma and/or Surgery: No Elderly 70 year or older: No Heart and/or Respiratory Failure: No Acute Myocardial infarction and/or Ischemic Stroke: No Acute Infection and/or Rheumatologic Disorder: Yes (rheumatic heart , arthritis) Obesity (BMI 30 or greater): No Ongoing Hormonal Treatment: No Score: 4 Lenin Score less than 4; Low Risk of VTE Lenin Score 4 or greater; High Risk of VTE Coding Level of Care Code Est Patient Level 1 Diagnoses Current use of anticoagulant therapy Z79.01 Results AMB INR Fingerstick AMB INR Fingerstick 2.7 Last Edit by Dacia Rae RN on 10/15/23 10:59 manual entry Assessment & Plan Assessment & Plan (1) Current use of anticoagulant therapy: Code(s): Z79.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
[2023-10-16 11:14] LABS: Prothrombin Time Whole Bld POC 31.9 sec (11.1-13.5); ~PT, ~INR - Anti Coag Clinic 2.7 (0.9-1.1)
== END 2023-10-15 11:18 | disposition home or self-care (01) ==
LOC: HO.ACS 10:51
PROVIDERS: PCP Nurse Practitioner Family; Visit Provider Internal Medicine
DX: Z79.01 Long term (current) use of anticoagulants (principal)

== ENCOUNTER → 2023-10-15 10:51 | Outpatient (BNVA) | payer MEDICARE, MEDICAID, SELFPAY | PROVIDERS: PCP Nurse Practitioner Family; Visit Provider Internal Medicine | DX: Z95.2 Presence of prosthetic heart valve (principal); Z79.01 Long term (current) use of anticoagulants; Z51.81 Encounter for therapeutic drug level monitoring | CPT/HCPCS: 85610; 99211 ==

== ENCOUNTER 2023-11-16 13:34 | Outpatient (AMB) | payer MEDICARE, MEDICAID, SELFPAY ==
[2023-11-16 13:47] LABS: Prothrombin Time Whole Bld POC 40.7 sec (11.1-13.5); ~PT, ~INR - Anti Coag Clinic 3.4 (0.9-1.1)
--- NOTE | 2023-11-16 13:50 | MHC.OFFVISCO ---
Intake Intake Visit Reasons: Anticoagulation Allergies Penicillins Allergy (Verified 11/16/23 13:41) CANT REMEMBER Medication List - Last Reconciled 11/16/23 by Dacia Rae RN acetaminophen ER (Arthritis Pain Reliever) 650 mg PO Q8H calcium carbonate-vitamin D3 600 mg-10 mcg (400 unit) 1 tab PO BID carboxymethylcellulose sodium 0.5% drps ophthalmic (eye) ergocalciferol (vitamin D2) 1,250 mcg PO QWEEK multivitamin with folic acid 400 mcg (Tab-A-Jazmine) 1 tab PO DAILY omeprazole 20 mg PO DAILY peg 3350-electrolytes 236-22.74-6.74 -5.86 gram mL PO warfarin 7.5 mg See Protocol PO DAILY Nursing Note INR: 3.4 in therapeutic range Medications and supplements reviewed No changes in health, diet, medications, or supplements, Denies any signs and symptoms of bleeding or bruising or clotting. Bleeding, bruising, clotting discussed Nutritional guidance given Dose: 3.75MG X 1 DAY/ 7.5MG X 5 DAYS F/U INR: 4 WEEKS Patient verbalizes understanding of instructions given Coding Level of Care Code Est Patient Level 1 Diagnoses Current use of anticoagulant therapy Z79.01 Results AMB INR Fingerstick AMB INR Fingerstick 3.4 Last Edit by Dacia Rae RN on 11/16/23 13:49 MANUAL DELAY Assessment & Plan Assessment & Plan (1) Current use of anticoagulant therapy: Code(s): Z79.01 - terminal manager (current) use of 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
== END 2023-11-16 13:52 | disposition home or self-care (01) ==
LOC: HO.ACS 13:34
PROVIDERS: PCP Nurse Practitioner Family; Visit Provider Internal Medicine
DX: Z79.01 Long term (current) use of anticoagulants (principal)

== ENCOUNTER → 2023-11-16 13:34 | Outpatient (BNVA) | payer OTHER, SELFPAY | PROVIDERS: PCP Nurse Practitioner Family; Visit Provider Internal Medicine | DX: Z95.2 Presence of prosthetic heart valve (principal); Z79.01 Long term (current) use of anticoagulants; Z51.81 Encounter for therapeutic drug level monitoring | CPT/HCPCS: 85610; 99211 ==

== ENCOUNTER 2023-12-14 11:00 | Outpatient (AMB) | payer MEDICARE, MEDICAID, SELFPAY ==
[2023-12-14 11:09] LABS: Prothrombin Time Whole Bld POC 32.5 sec (11.1-13.5); ~PT, ~INR - Anti Coag Clinic 2.7 (0.9-1.1)
--- NOTE | 2023-12-14 11:13 | MHC.OFFVISCO ---
Intake Intake Visit Reasons: Anticoagulation Allergies Penicillins Allergy (Verified 12/14/23 11:03) CANT REMEMBER Medication List - Last Reconciled 12/14/23 by Dacia Rae RN acetaminophen ER (Arthritis Pain Reliever) 650 mg PO Q8H calcium carbonate-vitamin D3 600 mg-10 mcg (400 unit) 1 tab PO BID carboxymethylcellulose sodium 0.5% drps ophthalmic (eye) ergocalciferol (vitamin D2) 1,250 mcg PO QWEEK multivitamin with folic acid 400 mcg (Tab-A-Jazmine) 1 tab PO DAILY omeprazole 20 mg PO DAILY peg 3350-electrolytes 236-22.74-6.74 -5.86 gram mL PO warfarin 7.5 mg See Protocol PO DAILY Nursing Note INR: 2.7 in therapeutic range Medications and supplements reviewed RIGHT ANKLE IS SWOLLEN - NO KNOWN INJURY, TO SEE MD - MAY NEED A INJECTION FOR THE PAIN, PT INSTRUCTED TO CALL WITH ANY MED CHANGES IN 1-2 DAYS Denies any signs and symptoms of bleeding or bruising or clotting. 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
== END 2023-12-14 11:18 | disposition home or self-care (01) ==
LOC: HO.ACS 11:00
PROVIDERS: PCP Nurse Practitioner Family; Visit Provider Internal Medicine
DX: Z79.01 Long term (current) use of anticoagulants (principal)

== ENCOUNTER → 2023-12-14 11:00 | Outpatient (BNVA) | payer OTHER, SELFPAY | PROVIDERS: PCP Nurse Practitioner Family; Visit Provider Internal Medicine | DX: Z95.2 Presence of prosthetic heart valve (principal); Z51.81 Encounter for therapeutic drug level monitoring; Z79.01 Long term (current) use of anticoagulants | CPT/HCPCS: 85610; 99211 ==

== ENCOUNTER 2024-01-11 10:55 | Outpatient (AMB) | payer MEDICARE, MEDICAID, SELFPAY ==
[2024-01-11 11:02] LABS: Prothrombin Time Whole Bld POC 31.3 sec (11.1-13.5); ~PT, ~INR - Anti Coag Clinic 2.6 (0.9-1.1)
--- NOTE | 2024-01-11 11:16 | MHC.OFFVISCO ---
Intake Intake Visit Reasons: Anticoagulation Allergies Penicillins Allergy (Verified 01/11/24 10:57) CANT REMEMBER Medication List - Last Reconciled 01/11/24 by Sena Adams, RN acetaminophen ER (Arthritis Pain Reliever) 650 mg PO Q8H calcium carbonate-vitamin D3 600 mg-10 mcg (400 unit) 1 tab PO BID carboxymethylcellulose sodium 0.5% drps ophthalmic (eye) ergocalciferol (vitamin D2) 1,250 mcg PO QWEEK multivitamin with folic acid 400 mcg (Tab-A-Jazmine) 1 tab PO DAILY omeprazole 20 mg PO DAILY peg 3350-electrolytes 236-22.74-6.74 -5.86 gram mL PO warfarin 7.5 mg See Protocol PO DAILY Nursing Note INR: 2.6 in therapeutic range of 2.5-3.5 Medications and supplements reviewed No changes in health, diet, medications, or supplements, Denies any signs and symptoms of bleeding or bruising or clotting. Bleeding, bruising, clotting discussed Nutritional guidance given to avoid greens today. new food list given to pt to review and have a serving of food from the list that raises the INR for 2 days then to balance reds and greens Dose: cont usual dose of 7.5mg X6 days and 3.75mg X1 day F/U INR: 1 month Patient verbalizes understanding of instructions given Coding Level of Care Code Est Patient Level 1 Diagnoses Current use of anticoagulant therapy Z79.01 Assessment & Plan Assessment & Plan (1) Current use of anticoagulant therapy: Code(s): Z79.01 - salvage determiner (current) use of 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
== END 2024-01-11 11:21 | disposition home or self-care (01) ==
LOC: HO.ACS 10:55
PROVIDERS: PCP Nurse Practitioner Family; Visit Provider Internal Medicine
DX: Z79.01 Long term (current) use of anticoagulants (principal)

== ENCOUNTER → 2024-01-11 10:55 | Outpatient (BNVA) | payer OTHER, SELFPAY | PROVIDERS: PCP Nurse Practitioner Family; Visit Provider Internal Medicine | DX: Z95.2 Presence of prosthetic heart valve (principal); Z79.01 Long term (current) use of anticoagulants; Z51.81 Encounter for therapeutic drug level monitoring | CPT/HCPCS: 85610; 99211 ==

== ENCOUNTER 2024-02-08 10:51 | Outpatient (AMB) | payer MEDICARE, MEDICAID, SELFPAY ==
--- NOTE | 2024-02-08 11:03 | MHC.OFFVISCO ---
Intake Intake Visit Reasons: Anticoagulation Allergies Penicillins Allergy (Verified 02/08/24 10:59) CANT REMEMBER Medication List - Last Reconciled 02/08/24 by Becka Jarrett RN acetaminophen ER (Arthritis Pain Reliever) 650 mg PO Q8H calcium carbonate-vitamin D3 600 mg-10 mcg (400 unit) 1 tab PO BID carboxymethylcellulose sodium 0.5% drps ophthalmic (eye) ergocalciferol (vitamin D2) 1,250 mcg PO QWEEK multivitamin with folic acid 400 mcg (Tab-A-Jazmine) 1 tab PO DAILY omeprazole 20 mg PO DAILY peg 3350-electrolytes 236-22.74-6.74 -5.86 gram mL PO warfarin 7.5 mg See Protocol PO DAILY Nursing Note INR 4.1-?? out of therapeutic range of 2.5-3.5 Medications and supplements reviewed Patient status: pt states has osteoporosis Medications or supplements: no changes Diet: has had smoothies with strawberries Denies any signs and symptoms of bleeding or clotting or unusual bruising Bleeding, bruising, clotting discussed Nutritional guidance given: eat greens to lower, no reds for 2 days Dose: decrease dose to 3.75mg today then cont reg 7.5mg x 6, 3.75mg x 1 F/U INR Date : 2 weeks?? Patient verbalizing understanding of instructions given. Coding Level of Care Code Est Patient Level 1 Diagnoses Current use of anticoagulant therapy Z79.01 Results AMB INR Fingerstick AMB INR Fingerstick 4.1 Last Edit by Becka Jarrett RN on 02/08/24 11:05 Assessment & Plan Assessment & Plan (1) Current use of anticoagulant therapy: Code(s): Z79.01 - terminal supervisor (current) use of 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
[2024-02-09 08:02] LABS: Prothrombin Time Whole Bld POC 48.7 sec (11.1-13.5); ~PT, ~INR - Anti Coag Clinic 4.1 (0.9-1.1)
== END 2024-02-08 11:09 | disposition home or self-care (01) ==
LOC: HO.ACS 10:51
PROVIDERS: PCP Nurse Practitioner Family; Visit Provider Internal Medicine
DX: Z79.01 Long term (current) use of anticoagulants (principal)

== ENCOUNTER → 2024-02-08 10:51 | Outpatient (BNVA) | payer OTHER, SELFPAY | PROVIDERS: PCP Nurse Practitioner Family; Visit Provider Internal Medicine | DX: Z95.2 Presence of prosthetic heart valve (principal); Z51.81 Encounter for therapeutic drug level monitoring; Z79.01 Long term (current) use of anticoagulants | CPT/HCPCS: 85610; 99211 ==

== ENCOUNTER 2024-02-22 10:52 | Outpatient (AMB) | payer OTHER, SELFPAY ==
[2024-02-22 11:04] LABS: Prothrombin Time Whole Bld POC 39.2 sec (11.1-13.5); ~PT, ~INR - Anti Coag Clinic 3.3 (0.9-1.1)
--- NOTE | 2024-02-22 11:10 | MHC.OFFVISCO ---
Intake Intake Visit Reasons: Anticoagulation Allergies Penicillins Allergy (Verified 02/22/24 11:00) CANT REMEMBER Medication List - Last Reconciled 02/22/24 by Sena Adams RN acetaminophen ER (Arthritis Pain Reliever) 650 mg PO Q8H calcium carbonate-vitamin D3 600 mg-10 mcg (400 unit) 1 tab PO BID carboxymethylcellulose sodium 0.5% drps ophthalmic (eye) ergocalciferol (vitamin D2) 1,250 mcg PO QWEEK multivitamin with folic acid 400 mcg (Tab-A-Jazmine) 1 tab PO DAILY omeprazole 20 mg PO DAILY peg 3350-electrolytes 236-22.74-6.74 -5.86 gram mL PO warfarin 7.5 mg See Protocol PO DAILY Nursing Note INR: 3.3 in therapeutic range of 2.5-3.5 Medications and supplements reviewed No changes in health, diet, medications, or supplements, Denies any signs and symptoms of bleeding or bruising or clotting. Bleeding, bruising, clotting discussed Nutritional guidance given to balance greens and reds Dose: 7.5mg X 6 days and 3.75mg X 1 day F/U INR: 4 weeks Patient verbalizes understanding of instructions given Coding Level of Care Code Est Patient Level 1 Diagnoses Current use of anticoagulant therapy Z79.01 Results AMB INR Fingerstick AMB INR Fingerstick 3.3 Last Edit by Sena Adams RN on 02/22/24 11:08 interface delay Assessment & Plan Assessment & Plan (1) Current use of anticoagulant therapy: Code(s): Z79.01 - nursing home (current) use of 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
== END 2024-02-22 11:14 | disposition home or self-care (01) ==
LOC: HO.ACS 10:52
PROVIDERS: PCP Nurse Practitioner Family; Visit Provider Internal Medicine
DX: Z79.01 Long term (current) use of anticoagulants (principal)

== ENCOUNTER → 2024-02-22 10:52 | Outpatient (BNVA) | payer OTHER, SELFPAY | PROVIDERS: PCP Nurse Practitioner Family; Visit Provider Internal Medicine | DX: Z95.2 Presence of prosthetic heart valve (principal); Z79.01 Long term (current) use of anticoagulants; Z51.81 Encounter for therapeutic drug level monitoring | CPT/HCPCS: 85610; 99211 ==

== ENCOUNTER 2024-03-21 10:44 | Outpatient (AMB) | payer OTHER, SELFPAY ==
--- NOTE | 2024-03-21 10:52 | MHC.OFFVISCO ---
Intake Intake Visit Reasons: Anticoagulation Allergies Penicillins Allergy (Verified 03/21/24 10:48) CANT REMEMBER Medication List - Last Reconciled 03/21/24 by Becka Jarrett RN acetaminophen ER (Arthritis Pain Reliever) 650 mg PO Q8H calcium carbonate-vitamin D3 600 mg-10 mcg (400 unit) 1 tab PO BID carboxymethylcellulose sodium 0.5% drps ophthalmic (eye) ergocalciferol (vitamin D2) 1,250 mcg PO QWEEK multivitamin with folic acid 400 mcg (Tab-A-Jazmine) 1 tab PO DAILY omeprazole 20 mg PO DAILY peg 3350-electrolytes 236-22.74-6.74 -5.86 gram mL PO warfarin 7.5 mg See Protocol PO DAILY Nursing Note INR: 3.2- in therapeutic range of 2.5-3.5 Medications and supplements reviewed No changes in health, diet, medications, or supplements, Denies any signs and symptoms of bleeding or bruising or clotting. Bleeding, bruising, clotting discussed Nutritional guidance given Dose: 7.5mg x 6, 3.75mg x 1 F/U INR: 4 weeks Patient verbalizes understanding of instructions given Coding Level of Care Code Est Patient Level 1 Diagnoses Current use of anticoagulant therapy Z79.01 Results AMB INR Fingerstick AMB INR Fingerstick 3.2 Last Edit by Becka Jarrett RN on 03/21/24 10:53 interface delay Assessment & Plan Assessment & Plan (1) Current use of anticoagulant therapy: Code(s): Z79.01 - senior care (current) use of 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
[2024-03-21 15:18] LABS: Prothrombin Time Whole Bld POC 37.9 sec (11.1-13.5); ~PT, ~INR - Anti Coag Clinic 3.2 (0.9-1.1)
== END 2024-03-21 12:08 | disposition home or self-care (01) ==
LOC: HO.ACS 10:44
PROVIDERS: PCP Nurse Practitioner Family; Visit Provider Internal Medicine
DX: Z79.01 Long term (current) use of anticoagulants (principal)

== ENCOUNTER → 2024-03-21 10:44 | Outpatient (BNVA) | payer OTHER, SELFPAY | PROVIDERS: PCP Nurse Practitioner Family; Visit Provider Internal Medicine | DX: Z95.2 Presence of prosthetic heart valve (principal); Z79.01 Long term (current) use of anticoagulants; Z51.81 Encounter for therapeutic drug level monitoring | CPT/HCPCS: 85610; 99211 ==

== ENCOUNTER 2024-04-18 10:59 | Outpatient (AMB) | payer OTHER, SELFPAY ==
[2024-04-18 11:06] LABS: Prothrombin Time Whole Bld POC 41.4 sec (11.1-13.5); ~PT, ~INR - Anti Coag Clinic 3.5 (0.9-1.1)
--- NOTE | 2024-04-18 11:34 | MHC.OFFVISCO ---
Intake Intake Visit Reasons: Anticoagulation Allergies Penicillins Allergy (Verified 04/18/24 11:00) CANT REMEMBER Medication List - Last Reconciled 04/18/24 by Dacia Rae RN acetaminophen ER (Arthritis Pain Reliever) 650 mg PO Q8H calcium carbonate-vitamin D3 600 mg-10 mcg (400 unit) 1 tab PO BID carboxymethylcellulose sodium 0.5% drps ophthalmic (eye) ergocalciferol (vitamin D2) 1,250 mcg PO QWEEK multivitamin with folic acid 400 mcg (Tab-A-Jazmine) 1 tab PO DAILY omeprazole 20 mg PO DAILY peg 3350-electrolytes 236-22.74-6.74 -5.86 gram mL PO warfarin 7.5 mg See Protocol PO DAILY Nursing Note INR: 3.5 in therapeutic range Medications and supplements reviewed While pt here for ACS INR appt EMORY Craig from [facility] called pt: Pt to have colonoscopy 04/28/24 with a 5 day hold of warfarin , PCP to send orders for lovenox to pharmacy- t/c made to PCP while pt here to request orders for lovenox, pt weighs 170 lbs 1mg /kg bid 04/22/24 last dose of warfarin 04/23/24-hold warfarin to when instructed to restart 04/28/24 procedure - to resume warfarin and lovenox per md orders restart with usual dose 7.5mg x 2 days then booster dose x 1 day only 11.25mg then resume usual dose check INR 5 days post procedure she will avoid greens after the procedure Denies any signs and symptoms of bleeding or bruising or clotting. Bleeding, bruising, clotting discussed Nutritional guidance given Dose: 3.75mg x 1 day/ 7.5mg x 6 days until hold 04/23/24 F/U INR: 05/03/25 lovenox demonstration provided and printed instructions given Patient verbalizes understanding of instructions given Coding Level of Care Code Est Patient Level 2 Diagnoses Current use of anticoagulant therapy Z79.01 Comment lovenox prep orders for procedure - call to PCP and extra instruct Results AMB INR Fingerstick AMB INR Fingerstick 3.5 Last Edit by Dacia Rae RN on 04/18/24 11:06 manual entry Assessment & Plan Assessment & Plan (1) Current use of anticoagulant therapy: Code(s): 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
== END 2024-04-18 11:54 | disposition home or self-care (01) ==
LOC: HO.ACS 10:59
PROVIDERS: PCP Nurse Practitioner Family; Visit Provider Internal Medicine
DX: Z79.01 Long term (current) use of anticoagulants (principal)

== ENCOUNTER → 2024-04-18 10:59 | Outpatient (BNVA) | payer OTHER, SELFPAY | PROVIDERS: PCP Nurse Practitioner Family; Visit Provider Internal Medicine | DX: Z95.2 Presence of prosthetic heart valve (principal); Z79.01 Long term (current) use of anticoagulants; Z51.81 Encounter for therapeutic drug level monitoring | CPT/HCPCS: 85610; 99212 ==

== ENCOUNTER 2024-05-03 10:53 | Outpatient (AMB) | payer OTHER, SELFPAY ==
--- NOTE | 2024-05-03 11:00 | MHC.OFFVISCO ---
Intake Intake Visit Reasons: Anticoagulation Allergies Penicillins Allergy (Verified 05/03/24 10:54) CANT REMEMBER Medication List - Last Reconciled 05/03/24 by Becka Jarrett RN acetaminophen ER (Arthritis Pain Reliever) 650 mg PO Q8H calcium carbonate-vitamin D3 600 mg-10 mcg (400 unit) 1 tab PO BID carboxymethylcellulose sodium 0.5% drps ophthalmic (eye) ergocalciferol (vitamin D2) 1,250 mcg PO QWEEK multivitamin with folic acid 400 mcg (Tab-A-Jazmine) 1 tab PO DAILY omeprazole 20 mg PO DAILY peg 3350-electrolytes 236-22.74-6.74 -5.86 gram mL PO warfarin 7.5 mg See Protocol PO DAILY Nursing Note INR 2.4-?? out of therapeutic range of 2.5-3.5 Medications and supplements reviewed Patient status: pt s/p colonoscopy on 04/28/24 with 5 day hold of warfarin with lovenox bridging pre and post , pt states she did not take lovenox this am Medications or supplements: no changes Diet: appetite is good Denies any signs and symptoms of bleeding or clotting or unusual bruising Bleeding, bruising, clotting discussed Nutritional guidance given: no greens for 2 days, eat a red today Dose: 11.25mg today then cont reg dosing 7.5mg x 6, 375mg x 1 F/U INR Date : 04/2724 Patient verbalizing understanding of instructions given. pcp office called with inr/dosing and retest- spoke to brigette- return call from brigette, she states pcp wants pt to increase dose of warfarin today, and cont lovenox until inr dea castellano, retest pt on thursday. brigette made aware pt did not take her lovenox this am. pt called and made aware of pcp instructions Coding Level of Care Code Est Patient Level 2 Diagnoses Current use of anticoagulant therapy Z79.01 Assessment & Plan Assessment & Plan (1) Current use of anticoagulant therapy: Code(s): Z79.01 - [facility] (current) use of 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
[2024-05-03 11:01] LABS: Prothrombin Time Whole Bld POC 29.3 sec (11.1-13.5); ~PT, ~INR - Anti Coag Clinic 2.4 (0.9-1.1)
== END 2024-05-03 11:41 | disposition home or self-care (01) ==
LOC: HO.ACS 10:53
PROVIDERS: PCP Nurse Practitioner Family; Visit Provider Internal Medicine
DX: Z79.01 Long term (current) use of anticoagulants (principal)

== ENCOUNTER → 2024-05-03 10:53 | Outpatient (BNVA) | payer OTHER, SELFPAY | PROVIDERS: PCP Nurse Practitioner Family; Visit Provider Internal Medicine | DX: Z95.2 Presence of prosthetic heart valve (principal); Z79.01 Long term (current) use of anticoagulants; Z51.81 Encounter for therapeutic drug level monitoring | CPT/HCPCS: 85610; 99212 ==

== ENCOUNTER 2024-05-06 10:51 | Outpatient (AMB) | payer OTHER, SELFPAY ==
[2024-05-06 11:12] LABS: Prothrombin Time Whole Bld POC 28.5 sec (11.1-13.5); ~PT, ~INR - Anti Coag Clinic 2.4 (0.9-1.1)
--- NOTE | 2024-05-06 11:12 | MHC.OFFVISCO ---
Intake Intake Visit Reasons: Anticoagulation Allergies Penicillins Allergy (Verified 05/06/24 11:06) CANT REMEMBER Medication List - Last Reconciled 05/06/24 by Dacia Rae RN acetaminophen ER (Arthritis Pain Reliever) 650 mg PO Q8H calcium carbonate-vitamin D3 600 mg-10 mcg (400 unit) 1 tab PO BID carboxymethylcellulose sodium 0.5% drps ophthalmic (eye) ergocalciferol (vitamin D2) 1,250 mcg PO QWEEK multivitamin with folic acid 400 mcg (Tab-A-Jazmine) 1 tab PO DAILY omeprazole 20 mg PO DAILY peg 3350-electrolytes 236-22.74-6.74 -5.86 gram mL PO warfarin 7.5 mg See Protocol PO DAILY Nursing Note INR 2.4out of therapeutic range 2.5-3.5 S/P COLONOSCOPY 04/28/24 6 DAYS AGO HAD BOOSTER WARFARIN DOSE 3 DAYS AGO AND STILL MAY EFFECT THE INR Medications and supplements reviewed Patient status: States her abd is bruised from the lovenox and prefers not to take them- she was enc to take lovenox today then stop, no polyps or findings - just 1 small hemorroid Medications or supplements: no chagnes Diet: good Denies any signs and symptoms of bleeding or clotting or unusual bruising Bleeding, bruising, clotting discussed Nutritional guidance given: enc to avoid greens x 4 days, to eat orange and reds like leonardo and papaya that she likes to help raise the INR Dose: resume usual dose 7,5ng x 6 days/ 3.75mg x 1 day F/U INR Date: 1 week ?? Patient verbalizing understanding of instructions given. will notify PCP of pt status and request today last dose of lovenox ok for her Coding Level of Care Code Est Patient Level 1 Diagnoses Current use of anticoagulant therapy Z79.01 Assessment & Plan Assessment & Plan (1) Current use of anticoagulant therapy: Code(s): Z79.01 - prison (current) use of 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
== END 2024-05-06 11:27 | disposition home or self-care (01) ==
LOC: HO.ACS 10:51
PROVIDERS: PCP Nurse Practitioner Family; Visit Provider Internal Medicine
DX: Z79.01 Long term (current) use of anticoagulants (principal)

== ENCOUNTER → 2024-05-06 10:51 | Outpatient (BNVA) | payer OTHER, SELFPAY | PROVIDERS: PCP Nurse Practitioner Family; Visit Provider Internal Medicine | DX: Z95.2 Presence of prosthetic heart valve (principal); Z79.01 Long term (current) use of anticoagulants; Z51.81 Encounter for therapeutic drug level monitoring | CPT/HCPCS: 85610; 99211 ==

== ENCOUNTER 2024-05-10 10:22 | Outpatient (AMB) | payer OTHER, SELFPAY ==
[2024-05-10 10:35] LABS: Prothrombin Time Whole Bld POC 26.6 sec (11.1-13.5); ~PT, ~INR - Anti Coag Clinic 2.2 (0.9-1.1)
--- NOTE | 2024-05-10 10:51 | MHC.OFFVISCO ---
Intake Intake Visit Reasons: Anticoagulation Allergies Penicillins Allergy (Verified 05/10/24 10:31) CANT REMEMBER Medication List - Last Reconciled 05/10/24 by Sena Adams, RN acetaminophen ER (Arthritis Pain Reliever) 650 mg PO Q8H calcium carbonate-vitamin D3 600 mg-10 mcg (400 unit) 1 tab PO BID carboxymethylcellulose sodium 0.5% drps ophthalmic (eye) ergocalciferol (vitamin D2) 1,250 mcg PO QWEEK multivitamin with folic acid 400 mcg (Tab-A-Jazmine) 1 tab PO DAILY omeprazole 20 mg PO DAILY peg 3350-electrolytes 236-22.74-6.74 -5.86 gram mL PO warfarin 7.5 mg See Protocol PO DAILY Nursing Note INR ?? 2.2 out of therapeutic range of 2.5-3.5 Medications and supplements reviewed no changes Patient status: well Medications or supplements: no changes Diet: usual diet for pt Denies any signs and symptoms of bleeding or clotting or unusual bruising Bleeding, bruising, clotting discussed. Pt has bruises on abd from lovenox injections. Nutritional guidance given: to avoid greens the next 2 days, foof list reviewed and given to pt. She states she will have grapes and melon. Dose: increase todays dose to 11.25mg (7.5mg) and increase tomorrow's dose to 7.5mg (3.75mg). Pt to take lovenox bid and then return to ACS the next day. F/U INR Date : 05/12/24?? Patient verbalizing understanding of instructions given. 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 Spoke to Linda and info relayed to her. 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
== END 2024-05-10 14:51 | disposition home or self-care (01) ==
LOC: HO.ACS 10:22
PROVIDERS: PCP Nurse Practitioner Family; Visit Provider Internal Medicine
DX: Z79.01 Long term (current) use of anticoagulants (principal)

== ENCOUNTER → 2024-05-10 10:22 | Outpatient (BNVA) | payer OTHER, SELFPAY | PROVIDERS: PCP Nurse Practitioner Family; Visit Provider Internal Medicine | DX: Z95.2 Presence of prosthetic heart valve (principal); Z79.01 Long term (current) use of anticoagulants; Z51.81 Encounter for therapeutic drug level monitoring | CPT/HCPCS: 85610; 99211 ==

== ENCOUNTER 2024-05-12 13:02 | Outpatient (AMB) | payer OTHER, SELFPAY ==
[2024-05-12 13:11] LABS: Prothrombin Time Whole Bld POC 34.3 sec (11.1-13.5); ~PT, ~INR - Anti Coag Clinic 2.9 (0.9-1.1)
--- NOTE | 2024-05-12 13:14 | MHC.OFFVISCO ---
Intake Intake Visit Reasons: Anticoagulation Allergies Penicillins Allergy (Verified 05/12/24 13:05) CANT REMEMBER Medication List - Last Reconciled 05/12/24 by Dacia Rae RN acetaminophen ER (Arthritis Pain Reliever) 650 mg PO Q8H calcium carbonate-vitamin D3 600 mg-10 mcg (400 unit) 1 tab PO BID carboxymethylcellulose sodium 0.5% drps ophthalmic (eye) ergocalciferol (vitamin D2) 1,250 mcg PO QWEEK multivitamin with folic acid 400 mcg (Tab-A-Jazmine) 1 tab PO DAILY omeprazole 20 mg PO DAILY peg 3350-electrolytes 236-22.74-6.74 -5.86 gram mL PO warfarin 7.5 mg See Protocol PO DAILY Nursing Note INR: 2.8 in therapeutic range Medications and supplements reviewed- NO CHANGES PT FEELS POST COLONOSCOPY - NO COMPLICATION - INR REQURIED MORE TIME COMING INTO RANGE - SHE CAN NOW STOP THE LOVENOX INR GREATER THAN 2.5 No changes in health, diet, medications, or supplements, Denies any signs and symptoms of bleeding or bruising or clotting. 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
== END 2024-05-12 13:19 | disposition home or self-care (01) ==
LOC: HO.ACS 13:02
PROVIDERS: PCP Nurse Practitioner Family; Visit Provider Internal Medicine
DX: Z79.01 Long term (current) use of anticoagulants (principal)

== ENCOUNTER → 2024-05-12 13:02 | Outpatient (BNVA) | payer OTHER, SELFPAY | PROVIDERS: PCP Nurse Practitioner Family; Visit Provider Internal Medicine | DX: Z95.2 Presence of prosthetic heart valve (principal); Z79.01 Long term (current) use of anticoagulants; Z51.81 Encounter for therapeutic drug level monitoring | CPT/HCPCS: 85610; 99211 ==

== ENCOUNTER 2024-05-30 10:47 | Outpatient (AMB) | payer OTHER, SELFPAY ==
[2024-05-30 11:16] LABS: Prothrombin Time Whole Bld POC 28.8 sec (11.1-13.5); ~PT, ~INR - Anti Coag Clinic 2.4 (0.9-1.1)
--- NOTE | 2024-05-30 11:30 | MHC.OFFVISCO ---
Intake Intake Visit Reasons: Anticoagulation Allergies Penicillins Allergy (Verified 05/30/24 11:10) CANT REMEMBER Nursing Note INR 2.4?out of therapeutic range of 2.5-3.5 Medications and supplements reviewed Patient status: well Medications or supplements: no changes Diet: usual diet for pt Denies any signs and symptoms of bleeding or clotting or unusual bruising Bleeding, bruising, clotting discussed Nutritional guidance given: to avoid greens X 2 days Dose: increase today's dose to 11.25mg, 7.5mg tomorrow (usual dose) then increase the next day to 7.5mg (3.75mg) then resume usual dose of 7.5mg X 6 days and 3.75mg X 1 day (Thu) F/U INR Date : 2 weeks Patient verbalizing understanding of instructions given. 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
== END 2024-05-30 11:35 | disposition home or self-care (01) ==
LOC: HO.ACS 10:47
PROVIDERS: PCP Nurse Practitioner Family; Visit Provider Internal Medicine
DX: Z79.01 Long term (current) use of anticoagulants (principal)

== ENCOUNTER → 2024-05-30 10:47 | Outpatient (BNVA) | payer OTHER, SELFPAY | PROVIDERS: PCP Nurse Practitioner Family; Visit Provider Internal Medicine | DX: Z95.2 Presence of prosthetic heart valve (principal); Z79.01 Long term (current) use of anticoagulants; Z51.81 Encounter for therapeutic drug level monitoring | CPT/HCPCS: 85610; 99211 ==

== ENCOUNTER 2024-06-13 10:47 | Outpatient (AMB) | payer OTHER, SELFPAY ==
--- NOTE | 2024-06-13 11:26 | MHC.OFFVISCO ---
Intake Intake Visit Reasons: Anticoagulation Allergies Penicillins Allergy (Verified 06/13/24 11:10) CANT REMEMBER Medication List - Last Reconciled 06/13/24 by Dacia Rae RN acetaminophen ER (Arthritis Pain Reliever) 650 mg PO Q8H calcium carbonate-vitamin D3 600 mg-10 mcg (400 unit) 1 tab PO BID carboxymethylcellulose sodium 0.5% drps ophthalmic (eye) ergocalciferol (vitamin D2) 1,250 mcg PO QWEEK multivitamin with folic acid 400 mcg (Tab-A-Jazmine) 1 tab PO DAILY omeprazole 20 mg PO DAILY plecanatide (Trulance) 3 mg PO .as needed PRN warfarin 7.5 mg See Protocol PO DAILY Nursing Note INR: 2.4 out of therapeutic range- since her colonoscopy - 1 INR in range in over a month Medications and supplements reviewed taking a med for constipation only prn and maybe x 2 / week- no warfarin interaction - however enc her to take by itself Denies any signs and symptoms of bleeding or bruising or clotting. Bleeding, bruising, clotting discussed Nutritional guidance given - eat foods to help raise the INR when eating greens- resume greens end of the week Dose: 7.5mg daily this week - INR lower x 1 month post colonoscopy then resume usual dose 7.5mg x 6 days/ 3.75mg x 1 day eating amix of greens and orange and reds F/U INR: 2 weeks until INR stables Patient verbalizes understanding of instructions given Coding Level of Care Code Est Patient Level 1 Diagnoses Current use of anticoagulant therapy Z79.01 Results AMB INR Fingerstick AMB INR Fingerstick 2.4 Last Edit by Dacia Rae RN on 06/13/24 11:21 MANUAL ENTRY AMB INR Fingerstick AMB INR Fingerstick 2.4 Last Edit by Dacia Rae RN on 06/13/24 11:22 FAILED EXPANSE INTERFACING MANUAL ENTRY ONGOING Assessment & Plan Assessment & Plan (1) Current use of anticoagulant therapy: Code(s): Z79.01 - [facility] (current) use of 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
[2024-06-13 12:07] LABS: Prothrombin Time Whole Bld POC 29.2 sec (11.1-13.5); ~PT, ~INR - Anti Coag Clinic 2.4 (0.9-1.1)
== END 2024-06-13 11:35 | disposition home or self-care (01) ==
LOC: HO.ACS 10:47
PROVIDERS: PCP Nurse Practitioner Family; Visit Provider Internal Medicine
DX: Z79.01 Long term (current) use of anticoagulants (principal)

== ENCOUNTER → 2024-06-13 10:47 | Outpatient (BNVA) | payer OTHER, SELFPAY | PROVIDERS: PCP Nurse Practitioner Family; Visit Provider Internal Medicine | DX: Z95.2 Presence of prosthetic heart valve (principal); Z79.01 Long term (current) use of anticoagulants; Z51.81 Encounter for therapeutic drug level monitoring | CPT/HCPCS: 85610; 99211 ==

== ENCOUNTER 2024-06-28 10:50 | Outpatient (AMB) | payer OTHER, SELFPAY ==
--- NOTE | 2024-06-28 11:03 | MHC.OFFVISCO ---
Intake Intake Visit Reasons: Anticoagulation Allergies Penicillins Allergy (Verified 06/28/24 11:00) CANT REMEMBER Medication List - Last Reconciled 06/28/24 by Becka Jarrett RN acetaminophen ER (Arthritis Pain Reliever) 650 mg PO Q8H calcium carbonate-vitamin D3 600 mg-10 mcg (400 unit) 1 tab PO BID carboxymethylcellulose sodium 0.5% drps ophthalmic (eye) ergocalciferol (vitamin D2) 1,250 mcg PO QWEEK multivitamin with folic acid 400 mcg (Tab-A-Jazmine) 1 tab PO DAILY omeprazole 20 mg PO DAILY plecanatide (Trulance) 3 mg PO .as needed PRN warfarin 7.5 mg See Protocol PO DAILY Nursing Note INR: 2.6- in therapeutic range of 2.5-3.5 Medications and supplements reviewed- no changes No changes in health, diet, medications, or supplements, Denies any signs and symptoms of bleeding or bruising or clotting. Bleeding, bruising, clotting discussed Nutritional guidance given Dose: 7.5mg x 6. 3.75mg x 1 F/U INR: 2 week Patient verbalizes understanding of instructions given Coding Level of Care Code Est Patient Level 1 Diagnoses Current use of anticoagulant therapy Z79.01 Results AMB INR Fingerstick AMB INR Fingerstick 2.6 Last Edit by Becka Jarrett RN on 06/28/24 11:05 interface delay Assessment & Plan Assessment & Plan (1) Current use of anticoagulant therapy: Code(s): Z79.01 - nursing home (current) use of 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
[2024-06-28 11:04] LABS: Prothrombin Time Whole Bld POC 31.4 sec (11.1-13.5); ~PT, ~INR - Anti Coag Clinic 2.6 (0.9-1.1)
== END 2024-06-28 11:15 | disposition home or self-care (01) ==
LOC: HO.ACS 10:50
PROVIDERS: PCP Nurse Practitioner Family; Visit Provider Internal Medicine
DX: Z79.01 Long term (current) use of anticoagulants (principal)

== ENCOUNTER → 2024-06-28 10:50 | Outpatient (BNVA) | payer OTHER, SELFPAY | PROVIDERS: PCP Nurse Practitioner Family; Visit Provider Internal Medicine | DX: Z95.2 Presence of prosthetic heart valve (principal); Z79.01 Long term (current) use of anticoagulants; Z51.81 Encounter for therapeutic drug level monitoring | CPT/HCPCS: 85610; 99211 ==

== ENCOUNTER 2024-07-12 11:02 | Outpatient (AMB) | payer OTHER, SELFPAY ==
[2024-07-12 11:07] LABS: Prothrombin Time Whole Bld POC 29.7 sec (11.1-13.5); ~PT, ~INR - Anti Coag Clinic 2.5 (0.9-1.1)
--- NOTE | 2024-07-12 11:13 | MHC.OFFVISCO ---
Intake Intake Visit Reasons: Anticoagulation Allergies Penicillins Allergy (Verified 07/12/24 11:02) CANT REMEMBER Medication List - Last Reconciled 07/12/24 by Sena Gabriel, RN acetaminophen ER (Arthritis Pain Reliever) 650 mg PO Q8H calcium carbonate-vitamin D3 600 mg-10 mcg (400 unit) 1 tab PO BID carboxymethylcellulose sodium 0.5% drps ophthalmic (eye) ergocalciferol (vitamin D2) 1,250 mcg PO QWEEK multivitamin with folic acid 400 mcg (Tab-A-Jazmine) 1 tab PO DAILY omeprazole 20 mg PO DAILY plecanatide (Trulance) 3 mg PO .as needed PRN warfarin 7.5 mg See Protocol PO DAILY Nursing Note Amb to ACS feeling well Medications and supplements reviewed No changes in health, diet, medications, or supplements, Denies any signs and symptoms of bleeding, bruising,or clotting. Bleeding, bruising, clotting discussed INR 2.5 just in therapeutic range (2.5-3.5) Dose: continue usual 7.5mg daily x 6 and 3.75 mg x 1 day eat a balanced diet, try to add some more fruits (reds) SUCH YOVANA, PAPAYA, WATERMELON F/U INR: 2 weeks Patient verbalizes understanding of instructions given Coding Level of Care Code Est Patient Level 1 Diagnoses Current use of anticoagulant therapy Z79.01 Time Spent (min) 15 Assessment & Plan Assessment & Plan (1) Current use of anticoagulant therapy: Code(s): Z79.01 - [facility] (current) use of 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
== END 2024-07-12 13:30 | disposition home or self-care (01) ==
LOC: HO.ACS 11:02
PROVIDERS: PCP Nurse Practitioner Family; Visit Provider Internal Medicine
DX: Z79.01 Long term (current) use of anticoagulants (principal)

== ENCOUNTER → 2024-07-12 11:02 | Outpatient (BNVA) | payer OTHER, SELFPAY | PROVIDERS: PCP Nurse Practitioner Family; Visit Provider Internal Medicine | DX: Z95.2 Presence of prosthetic heart valve (principal); Z79.01 Long term (current) use of anticoagulants; Z51.81 Encounter for therapeutic drug level monitoring | CPT/HCPCS: 85610; 99211 ==

== ENCOUNTER 2024-07-26 10:49 | Outpatient (AMB) | payer OTHER, SELFPAY ==
[2024-07-26 10:57] LABS: Prothrombin Time Whole Bld POC 26.7 sec (11.1-13.5); ~PT, ~INR - Anti Coag Clinic 2.2 (0.9-1.1)
--- NOTE | 2024-07-26 11:03 | MHC.OFFVISCO ---
Intake Intake Visit Reasons: Anticoagulation Allergies Penicillins Allergy (Verified 07/26/24 10:51) CANT REMEMBER Medication List - Last Reconciled 07/26/24 by Sena Gabriel, RN acetaminophen ER (Arthritis Pain Reliever) 650 mg PO Q8H calcium carbonate-vitamin D3 600 mg-10 mcg (400 unit) 1 tab PO BID carboxymethylcellulose sodium 0.5% drps ophthalmic (eye) ergocalciferol (vitamin D2) 1,250 mcg PO QWEEK multivitamin with folic acid 400 mcg (Tab-A-Jazmine) 1 tab PO DAILY omeprazole 20 mg PO DAILY plecanatide (Trulance) 3 mg PO .as needed PRN warfarin 7.5 mg See Protocol PO DAILY Nursing Note Amb to ACS feeling well Medications and supplements reviewed No changes in health, diet, medications, or supplements, Denies any signs and symptoms of bleeding, bruising, or clotting. Bleeding, bruising, clotting discussed INR 2.2 below therapeutic range 2.5-3.5 Dose: increase dose today to 11.25mg vs 7.5 and has continued to run below or low in range since colonoscopy in April, will increase weekly dosing to 7.5mg daily no greens today or tomorrow then balance food choices- indicates she is not a big green eater F/U INR: 1 week Patient verbalizes understanding of instructions given Coding Level of Care Code Est Patient Level 1 Diagnoses Current use of anticoagulant therapy Z79.01 Time Spent (min) 15 Assessment & Plan Assessment & Plan (1) Current use of anticoagulant therapy: Code(s): 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
== END 2024-07-26 11:11 | disposition home or self-care (01) ==
LOC: HO.ACS 10:49
PROVIDERS: PCP Nurse Practitioner Family; Visit Provider Internal Medicine
DX: Z79.01 Long term (current) use of anticoagulants (principal)

== ENCOUNTER → 2024-07-26 10:49 | Outpatient (BNVA) | payer OTHER, SELFPAY | PROVIDERS: PCP Nurse Practitioner Family; Visit Provider Internal Medicine | DX: Z95.2 Presence of prosthetic heart valve (principal); Z79.01 Long term (current) use of anticoagulants; Z51.81 Encounter for therapeutic drug level monitoring | CPT/HCPCS: 85610; 99211 ==

== ENCOUNTER 2024-08-02 10:57 | Outpatient (AMB) | payer OTHER, SELFPAY ==
[2024-08-02 11:03] LABS: Prothrombin Time Whole Bld POC 37.1 sec (11.1-13.5); ~PT, ~INR - Anti Coag Clinic 3.1 (0.9-1.1)
--- NOTE | 2024-08-02 11:06 | MHC.OFFVISCO ---
Intake Intake Visit Reasons: Anticoagulation Allergies Penicillins Allergy (Verified 08/02/24 10:59) CANT REMEMBER Medication List - Last Reconciled 08/02/24 by Sena Adams RN acetaminophen ER (Arthritis Pain Reliever) 650 mg PO Q8H calcium carbonate-vitamin D3 600 mg-10 mcg (400 unit) 1 tab PO BID carboxymethylcellulose sodium 0.5% drps ophthalmic (eye) ergocalciferol (vitamin D2) 1,250 mcg PO QWEEK multivitamin with folic acid 400 mcg (Tab-A-Jazmine) 1 tab PO DAILY omeprazole 20 mg PO DAILY plecanatide (Trulance) 3 mg PO .as needed PRN warfarin 7.5 mg See Protocol PO DAILY Nursing Note INR: 3.1 in therapeutic range of 2.5-3.5 Medications and supplements reviewed No changes in health, diet, medications, or supplements, Denies any signs and symptoms of bleeding or bruising or clotting. 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
== END 2024-08-02 11:07 | disposition home or self-care (01) ==
LOC: HO.ACS 10:57
PROVIDERS: PCP Nurse Practitioner Family; Visit Provider Internal Medicine
DX: Z79.01 Long term (current) use of anticoagulants (principal)

== ENCOUNTER → 2024-08-02 10:57 | Outpatient (BNVA) | payer OTHER, SELFPAY | PROVIDERS: PCP Nurse Practitioner Family; Visit Provider Internal Medicine | DX: Z95.2 Presence of prosthetic heart valve (principal); Z79.01 Long term (current) use of anticoagulants; Z51.81 Encounter for therapeutic drug level monitoring | CPT/HCPCS: 85610; 99211 ==

== ENCOUNTER 2024-08-16 10:49 | Outpatient (AMB) | payer OTHER, SELFPAY ==
[2024-08-16 11:00] LABS: ~PT, ~INR - Anti Coag Clinic 2.9 (0.9-1.1)
--- NOTE | 2024-08-16 11:02 | MHC.OFFVISCO ---
Intake Intake Visit Reasons: Anticoagulation Allergies Penicillins Allergy (Verified 08/16/24 10:55) CANT REMEMBER Medication List - Last Reconciled 08/16/24 by Sena Gabriel, RN acetaminophen ER (Arthritis Pain Reliever) 650 mg PO Q8H calcium carbonate-vitamin D3 600 mg-10 mcg (400 unit) 1 tab PO BID carboxymethylcellulose sodium 0.5% drps ophthalmic (eye) ergocalciferol (vitamin D2) 1,250 mcg PO QWEEK multivitamin with folic acid 400 mcg (Tab-A-Jazmine) 1 tab PO DAILY omeprazole 20 mg PO DAILY plecanatide (Trulance) 3 mg PO .as needed PRN warfarin 7.5 mg See Protocol PO DAILY Nursing Note Amb to ACS feeling cold but well Medications and supplements reviewed No changes in health, diet, medications, or supplements, Denies any signs and symptoms of bleeding, bruising,or clotting. Bleeding, bruising, clotting discussed INR 2.9 in therapeutic range (2.5-3.5) bakance greens and reds in diet, be consistent Dose: continue usual dosing 7.5mg daily F/U INR: 2 weeks Patient verbalizes understanding of instructions given Coding Level of Care Code Est Patient Level 1 Diagnoses Current use of anticoagulant therapy Z79.01 Time Spent (min) 15 Assessment & Plan Assessment & Plan (1) Current use of anticoagulant therapy: Code(s): Z79.01 - [facility] (current) use of 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
== END 2024-08-16 11:06 | disposition home or self-care (01) ==
LOC: HO.ACS 10:49
PROVIDERS: PCP Nurse Practitioner Family; Visit Provider Internal Medicine
DX: Z79.01 Long term (current) use of anticoagulants (principal)

== ENCOUNTER → 2024-08-16 10:49 | Outpatient (BNVA) | payer OTHER, SELFPAY | PROVIDERS: PCP Nurse Practitioner Family; Visit Provider Internal Medicine | DX: Z95.2 Presence of prosthetic heart valve (principal); Z79.01 Long term (current) use of anticoagulants; Z51.81 Encounter for therapeutic drug level monitoring | CPT/HCPCS: 85610; 99211 ==

== ENCOUNTER 2024-08-30 10:52 | Outpatient (AMB) | payer OTHER, SELFPAY ==
[2024-08-30 11:24] LABS: Prothrombin Time Whole Bld POC 31.8 sec (11.1-13.5); ~PT, ~INR - Anti Coag Clinic 2.6 (0.9-1.1)
--- NOTE | 2024-08-30 11:25 | MHC.OFFVISCO ---
Intake Intake Visit Reasons: Anticoagulation Allergies Penicillins Allergy (Verified 08/30/24 11:19) CANT REMEMBER Medication List - Last Reconciled 08/30/24 by Sena Adams RN acetaminophen ER (Arthritis Pain Reliever) 650 mg PO Q8H calcium carbonate-vitamin D3 600 mg-10 mcg (400 unit) 1 tab PO BID carboxymethylcellulose sodium 0.5% drps ophthalmic (eye) ergocalciferol (vitamin D2) 1,250 mcg PO QWEEK multivitamin with folic acid 400 mcg (Tab-A-Jazmine) 1 tab PO DAILY omeprazole 20 mg PO DAILY plecanatide (Trulance) 3 mg PO .as needed PRN warfarin 7.5 mg See Protocol PO DAILY Nursing Note INR: 2.6 in therapeutic range 2.5-3.5 Medications and supplements reviewed No changes in health, diet, medications, or supplements, Denies any signs and symptoms of bleeding or bruising or clotting. 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
== END 2024-08-30 11:30 | disposition home or self-care (01) ==
LOC: HO.ACS 10:52
PROVIDERS: PCP Nurse Practitioner Family; Visit Provider Internal Medicine
DX: Z79.01 Long term (current) use of anticoagulants (principal)

== ENCOUNTER → 2024-08-30 10:52 | Outpatient (BNVA) | payer OTHER, SELFPAY | PROVIDERS: PCP Nurse Practitioner Family; Visit Provider Internal Medicine | DX: Z95.2 Presence of prosthetic heart valve (principal); Z79.01 Long term (current) use of anticoagulants; Z51.81 Encounter for therapeutic drug level monitoring | CPT/HCPCS: 85610; 99211 ==

== ENCOUNTER 2024-09-12 10:50 | Outpatient (AMB) | payer OTHER, SELFPAY ==
[2024-09-12 11:08] LABS: Prothrombin Time Whole Bld POC 33.5 sec (11.1-13.5); ~PT, ~INR - Anti Coag Clinic 2.8 (0.9-1.1)
--- NOTE | 2024-09-12 11:13 | MHC.OFFVISCO ---
Intake Intake Visit Reasons: Anticoagulation Allergies Penicillins Allergy (Verified 09/12/24 11:03) CANT REMEMBER Medication List - Last Reconciled 09/12/24 by Dacia Rae RN acetaminophen ER (Arthritis Pain Reliever) 650 mg PO Q8H calcium carbonate-vitamin D3 600 mg-10 mcg (400 unit) 1 tab PO BID carboxymethylcellulose sodium 0.5% drps ophthalmic (eye) ergocalciferol (vitamin D2) 1,250 mcg PO QWEEK multivitamin with folic acid 400 mcg (Tab-A-Jazmine) 1 tab PO DAILY omeprazole 20 mg PO DAILY plecanatide (Trulance) 3 mg PO .as needed PRN warfarin 7.5 mg See Protocol PO DAILY Nursing Note INR: 2.8 in therapeutic range Medications and supplements reviewed No changes in health, diet, medications, or supplements, Denies any signs and symptoms of bleeding or bruising or clotting. Bleeding, bruising, clotting discussed Nutritional guidance given - not too much chocolate over ' day Dose: 7.5MG DAILY F/U INR: 3 WEEKS - if therapeutic go 4 weeks Patient verbalizes understanding of instructions given with read back Questionnaires HAS-BLED Does the patient had uncontrolled Hypertension?: No Does the patient have renal disease?: No Does the patient have liver disease?: Yes (hx from [facility] stated hep B+C ) Does the patient have a history of stroke?: No Has the patient had major bleeding or predisposition to bleeding?: No Does the patient have labile INRs?: No Is the patient over 65 years of age?: Yes Is the patient on medications that gives them a predisposition to bleeding?: Yes Does the patient use alcohol?: No HAS-BLED Score: 3 CHADSVASC Age: 66-74 Gender: Female Does the patient have a history of CHF?: No Does the patient have a history of Hypertension?: No Does the patient have a history of Stroke/TIA/Thromboembolism?: No Does the patient have a history of Vascular Disease (prior NM, PAD or aortic plaque)?: No Does the patient have a history of Diabetes?: No CHADS VACS Score: 2 Lenin Prediction Score Rsk VTE Active Cancer: No Previous VTE, excluding superficial vein thrombosis: No Reduced mobility: No Already known Thrombophilic Condition: No With-in last month Trauma and/or Surgery: No Elderly 70 year or older: No Heart and/or Respiratory Failure: No Acute Myocardial infarction and/or Ischemic Stroke: No Acute Infection and/or Rheumatologic Disorder: Yes (rheumatic heart , arthritis, IBSS) Obesity (BMI 30 or greater): No Ongoing Hormonal Treatment: No Score: 1 Lenin Score less than 4; Low Risk of VTE Lenin Score 4 or greater; High Risk of VTE Coding Level of Care Code Est Patient Level 1 Diagnoses Current use of anticoagulant therapy Z79.01 Assessment & Plan Assessment & Plan (1) Current use of anticoagulant therapy: Code(s): 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
== END 2024-09-12 11:25 | disposition home or self-care (01) ==
LOC: HO.ACS 10:50
PROVIDERS: PCP Nurse Practitioner Family; Visit Provider Internal Medicine
DX: Z79.01 Long term (current) use of anticoagulants (principal)

== ENCOUNTER → 2024-09-12 10:50 | Outpatient (BNVA) | payer OTHER, SELFPAY | PROVIDERS: PCP Nurse Practitioner Family; Visit Provider Internal Medicine | DX: Z95.2 Presence of prosthetic heart valve (principal); Z79.01 Long term (current) use of anticoagulants; Z51.81 Encounter for therapeutic drug level monitoring | CPT/HCPCS: 85610; 99211 ==

== ENCOUNTER 2024-10-03 10:58 | Outpatient (AMB) | payer OTHER, SELFPAY ==
--- NOTE | 2024-10-03 11:04 | MHC.OFFVISCO ---
Intake Intake Visit Reasons: Anticoagulation Allergies Penicillins Allergy (Verified 10/03/24 11:00) CANT REMEMBER Medication List - Last Reconciled 10/03/24 by Sena Adams RN acetaminophen ER (Arthritis Pain Reliever) 650 mg PO Q8H calcium carbonate-vitamin D3 600 mg-10 mcg (400 unit) 1 tab PO BID carboxymethylcellulose sodium 0.5% drps ophthalmic (eye) ergocalciferol (vitamin D2) 1,250 mcg PO QWEEK multivitamin with folic acid 400 mcg (Tab-A-Jazmine) 1 tab PO DAILY omeprazole 20 mg PO DAILY plecanatide (Trulance) 3 mg PO .as needed PRN warfarin 7.5 mg See Protocol PO DAILY Nursing Note INR: 3.3 in therapeutic range of 2.5-3.5 Medications and supplements reviewed No changes in health, diet, medications, or supplements, Denies any signs and symptoms of bleeding or bruising or clotting. 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
[2024-10-03 11:13] LABS: Prothrombin Time Whole Bld POC 39.6 sec (11.1-13.5); ~PT, ~INR - Anti Coag Clinic 3.3 (0.9-1.1)
== END 2024-10-03 11:09 | disposition home or self-care (01) ==
LOC: HO.ACS 10:58
PROVIDERS: PCP Nurse Practitioner Family; Visit Provider Internal Medicine
DX: Z79.01 Long term (current) use of anticoagulants (principal)

== ENCOUNTER → 2024-10-03 10:58 | Outpatient (BNVA) | payer OTHER, SELFPAY | PROVIDERS: PCP Nurse Practitioner Family; Visit Provider Internal Medicine | DX: Z95.2 Presence of prosthetic heart valve (principal); Z79.01 Long term (current) use of anticoagulants; Z51.81 Encounter for therapeutic drug level monitoring | CPT/HCPCS: 85610; 99211 ==

== ENCOUNTER 2024-10-25 10:51 | Outpatient (AMB) | payer OTHER, SELFPAY ==
[2024-10-25 11:01] LABS: Prothrombin Time Whole Bld POC 32.1 sec (11.1-13.5); ~PT, ~INR - Anti Coag Clinic 2.7 (0.9-1.1)
--- NOTE | 2024-10-25 11:04 | MHC.OFFVISCO ---
Intake Intake Visit Reasons: Anticoagulation Allergies Penicillins Allergy (Verified 10/25/24 10:53) CANT REMEMBER Medication List - Last Reconciled 10/25/24 by Dacia Rae RN acetaminophen ER (Arthritis Pain Reliever) 650 mg PO Q8H carboxymethylcellulose sodium 0.5% drps ophthalmic (eye) omeprazole 20 mg PO DAILY plecanatide (Trulance) 3 mg PO .as needed PRN warfarin 7.5 mg See Protocol PO DAILY Nursing Note INR: 2.7 in therapeutic range Medications and supplements reviewed No changes in health, diet, medications, or supplements, Denies any signs and symptoms of bleeding or bruising or clotting. Bleeding, bruising, clotting discussed Nutritional guidance given Dose: 7.5MG DAILY F/U INR: 1 MONTH Patient verbalizes understanding of instructions given with read back Questionnaires HAS-BLED Does the patient had uncontrolled Hypertension?: No Does the patient have renal disease?: No Does the patient have liver disease?: Yes (hx from [facility] stated hep B+C ) Does the patient have a history of stroke?: No Has the patient had major bleeding or predisposition to bleeding?: No Does the patient have labile INRs?: No Is the patient over 65 years of age?: Yes Is the patient on medications that gives them a predisposition to bleeding?: Yes Does the patient use alcohol?: No HAS-BLED Score: 3 CHADSVASC Age: 66-74 Gender: Female Does the patient have a history of CHF?: No Does the patient have a history of Hypertension?: No Does the patient have a history of Stroke/TIA/Thromboembolism?: No Does the patient have a history of Vascular Disease (prior NH, PAD or aortic plaque)?: No Does the patient have a history of Diabetes?: No CHADS VACS Score: 2 Lenin Prediction Score Rsk VTE Active Cancer: No Previous VTE, excluding superficial vein thrombosis: No Reduced mobility: No Already known Thrombophilic Condition: No With-in last month Trauma and/or Surgery: No Elderly 70 year or older: No Heart and/or Respiratory Failure: No Acute Myocardial infarction and/or Ischemic Stroke: No Acute Infection and/or Rheumatologic Disorder: Yes (rheumatic heart , arthritis, IBSS) Obesity (BMI 30 or greater): No Ongoing Hormonal Treatment: No Score: 1 Lenin Score less than 4; Low Risk of VTE Lenin Score 4 or greater; High Risk of VTE Coding Level of Care Code Est Patient Level 1 Diagnoses Current use of anticoagulant therapy Z79.01 Results AMB INR Fingerstick AMB INR Fingerstick 2.7 Last Edit by Dacia Rae RN on 10/25/24 11:02 MANUAL ENTRY Assessment & Plan Assessment & Plan (1) Current use of anticoagulant therapy: Code(s): 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
== END 2024-10-25 11:16 | disposition home or self-care (01) ==
LOC: HO.ACS 10:51
PROVIDERS: PCP Nurse Practitioner Family; Visit Provider Internal Medicine
DX: Z79.01 Long term (current) use of anticoagulants (principal)

== ENCOUNTER → 2024-10-25 10:51 | Outpatient (BNVA) | payer MEDICARE, MEDICAID, SELFPAY | PROVIDERS: PCP Nurse Practitioner Family; Visit Provider Internal Medicine | DX: Z95.2 Presence of prosthetic heart valve (principal); Z79.01 Long term (current) use of anticoagulants; Z51.81 Encounter for therapeutic drug level monitoring | CPT/HCPCS: 85610; 99211 ==

== ENCOUNTER 2024-11-22 10:50 | Outpatient (AMB) | payer MEDICARE, MEDICAID, SELFPAY ==
[2024-11-22 11:01] LABS: Prothrombin Time Whole Bld POC 25.2 sec (11.1-13.5); ~PT, ~INR - Anti Coag Clinic 2.1 (0.9-1.1)
--- NOTE | 2024-11-22 11:06 | MHC.OFFVISCO ---
Intake Intake Visit Reasons: Anticoagulation Allergies Penicillins Allergy (Verified 11/22/24 10:55) CANT REMEMBER Medication List - Last Reconciled 11/22/24 by Dacia Rae RN acetaminophen ER (Arthritis Pain Reliever) 650 mg PO Q8H carboxymethylcellulose sodium 0.5% drps ophthalmic (eye) omeprazole 20 mg PO DAILY plecanatide (Trulance) 3 mg PO .as needed PRN warfarin 7.5 mg See Protocol PO DAILY Nursing Note INR: 2.1 almost in therapeutic range-INR may be lower due to diet - but not quite sure - perhaps more chocolate 2 weeks ago. Medications and supplements reviewed No changes in health, diet, medications, or supplements, Denies any signs and symptoms of bleeding or bruising or clotting. 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
== END 2024-11-22 11:11 | disposition home or self-care (01) ==
LOC: HO.ACS 10:50
PROVIDERS: PCP Nurse Practitioner Family; Visit Provider Internal Medicine
DX: Z79.01 Long term (current) use of anticoagulants (principal)

== ENCOUNTER → 2024-11-22 10:50 | Outpatient (BNVA) | payer MEDICARE, MEDICAID, SELFPAY | PROVIDERS: PCP Nurse Practitioner Family; Visit Provider Internal Medicine | DX: Z95.2 Presence of prosthetic heart valve (principal); Z79.01 Long term (current) use of anticoagulants; Z51.81 Encounter for therapeutic drug level monitoring | CPT/HCPCS: 85610; 99211 ==

== ENCOUNTER 2024-12-06 10:56 | Outpatient (AMB) | payer MEDICARE, MEDICAID, SELFPAY ==
[2024-12-06 11:01] LABS: Prothrombin Time Whole Bld POC 35.8 sec (11.1-13.5)
--- NOTE | 2024-12-06 11:05 | MHC.OFFVISCO ---
Intake Intake Visit Reasons: Anticoagulation Allergies Penicillins Allergy (Verified 12/06/24 10:56) CANT REMEMBER Medication List - Last Reconciled 12/06/24 by Dacia Rae RN acetaminophen ER (Arthritis Pain Reliever) 650 mg PO Q8H carboxymethylcellulose sodium 0.5% drps ophthalmic (eye) omeprazole 20 mg PO DAILY plecanatide (Trulance) 3 mg PO .as needed PRN warfarin 7.5 mg See Protocol PO DAILY Nursing Note INR: 3.0 in therapeutic range Medications and supplements reviewed pt states she started a new med for constipation-not sure of the name and will call No changes in health, diet, or supplements, Denies any signs and symptoms of bleeding or bruising or clotting. Bleeding, bruising, clotting discussed Nutritional guidance given Dose: 7.5MG DAILY F/U INR: 1 MONTH -UNLESS NEW INTERACTS WITH WARFARIN Patient verbalizes understanding of instructions given Coding Level of Care Code Est Patient Level 1 Diagnoses Current use of anticoagulant therapy Z79.01 Assessment & Plan Assessment & Plan (1) Current use of anticoagulant therapy: Code(s): Z79.01 - [facility] (current) use of 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
== END 2024-12-06 11:07 | disposition home or self-care (01) ==
LOC: HO.ACS 10:56
PROVIDERS: PCP Nurse Practitioner Family; Visit Provider Internal Medicine Medical Oncology
DX: Z79.01 Long term (current) use of anticoagulants (principal)

== ENCOUNTER → 2024-12-06 10:56 | Outpatient (BNVA) | payer MEDICARE, MEDICAID, SELFPAY | PROVIDERS: PCP Nurse Practitioner Family; Visit Provider Internal Medicine Medical Oncology | DX: Z95.2 Presence of prosthetic heart valve (principal); Z79.01 Long term (current) use of anticoagulants; Z51.81 Encounter for therapeutic drug level monitoring | CPT/HCPCS: 85610; 99211 ==

== ENCOUNTER 2025-01-03 10:42 | Outpatient (AMB) | payer MEDICARE, MEDICAID, SELFPAY ==
[2025-01-03 10:49] LABS: Prothrombin Time Whole Bld POC 34.1 sec (11.1-13.5); ~PT, ~INR - Anti Coag Clinic 2.8 (0.9-1.1)
--- NOTE | 2025-01-03 10:57 | MHC.OFFVISCO ---
Intake Intake Visit Reasons: Anticoagulation Allergies Penicillins Allergy (Verified 01/03/25 10:48) CANT REMEMBER Medication List - Last Reconciled 01/03/25 by Dacia Rae RN acetaminophen ER (Arthritis Pain Reliever) 650 mg PO Q8H carboxymethylcellulose sodium 0.5% drps ophthalmic (eye) lubiprostone mcg PO PRN omeprazole 20 mg PO DAILY plecanatide (Trulance) 3 mg PO .as needed PRN warfarin 7.5 mg See Protocol PO DAILY Nursing Note INR: 2.8 in therapeutic range Medications and supplements reviewed No changes in health, diet, medications, or supplements, Denies any signs and symptoms of bleeding or bruising or clotting. Bleeding, bruising, clotting discussed Nutritional guidance given Dose: 7.5MG DAILY F/U INR: 1 MONTH Patient verbalizes understanding of instructions given Coding Level of Care Code Est Patient Level 1 Diagnoses Current use of anticoagulant therapy Z79.01 Assessment & Plan Assessment & Plan (1) Current use of anticoagulant therapy: Code(s): Z79.01 - [facility] (current) use of 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
== END 2025-01-03 10:58 | disposition home or self-care (01) ==
LOC: HO.ACS 10:42
PROVIDERS: PCP Nurse Practitioner Family; Visit Provider Internal Medicine Medical Oncology
DX: Z79.01 Long term (current) use of anticoagulants (principal)

== ENCOUNTER → 2025-01-03 10:42 | Outpatient (BNVA) | payer MEDICARE, MEDICAID, SELFPAY | PROVIDERS: PCP Nurse Practitioner Family; Visit Provider Internal Medicine Medical Oncology | DX: Z95.2 Presence of prosthetic heart valve (principal); Z79.01 Long term (current) use of anticoagulants; Z51.81 Encounter for therapeutic drug level monitoring | CPT/HCPCS: 85610; 99211 ==

== ENCOUNTER 2025-01-31 10:49 | Outpatient (AMB) | payer MEDICARE, MEDICAID, SELFPAY ==
[2025-01-31 10:55] LABS: Prothrombin Time Whole Bld POC 37.6 sec (11.1-13.5); ~PT, ~INR - Anti Coag Clinic 3.1 (0.9-1.1)
--- NOTE | 2025-01-31 10:55 | MHC.OFFVISCO ---
Intake Intake Visit Reasons: Anticoagulation Allergies Penicillins Allergy (Verified 01/31/25 10:50) CANT REMEMBER Medication List - Last Reconciled 01/31/25 by Dacia Rae RN acetaminophen ER (Arthritis Pain Reliever) 650 mg PO Q8H carboxymethylcellulose sodium 0.5% drps ophthalmic (eye) lubiprostone mcg PO PRN omeprazole 20 mg PO DAILY plecanatide (Trulance) 3 mg PO .as needed PRN warfarin 7.5 mg See Protocol PO DAILY Nursing Note INR: 3.1 in therapeutic range Medications and supplements reviewed No changes in health, diet, medications, or supplements, Denies any signs and symptoms of bleeding or bruising or clotting. 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
== END 2025-01-31 11:03 | disposition home or self-care (01) ==
LOC: HO.ACS 10:49
PROVIDERS: PCP Nurse Practitioner Family; Visit Provider Internal Medicine Medical Oncology
DX: Z79.01 Long term (current) use of anticoagulants (principal)

== ENCOUNTER → 2025-01-31 10:49 | Outpatient (BNVA) | payer MEDICARE, MEDICAID, SELFPAY | PROVIDERS: PCP Nurse Practitioner Family; Visit Provider Internal Medicine Medical Oncology | DX: Z95.2 Presence of prosthetic heart valve (principal); Z79.01 Long term (current) use of anticoagulants; Z51.81 Encounter for therapeutic drug level monitoring | CPT/HCPCS: 85610; 99211 ==

== ENCOUNTER 2025-03-01 10:55 | Outpatient (AMB) | payer MEDICARE, MEDICAID, SELFPAY ==
[2025-03-01 11:09] LABS: Prothrombin Time Whole Bld POC 34.2 sec (11.1-13.5); ~PT, ~INR - Anti Coag Clinic 2.8 (0.9-1.1)
--- NOTE | 2025-03-01 11:12 | MHC.OFFVISCO ---
Intake Intake Visit Reasons: Anticoagulation Allergies Penicillins Allergy (Verified 03/01/25 11:06) CANT REMEMBER Medication List - Last Reconciled 03/01/25 by Cherry Parker, RN acetaminophen ER (Arthritis Pain Reliever) 650 mg PO Q8H carboxymethylcellulose sodium 0.5% drps ophthalmic (eye) lubiprostone mcg PO PRN omeprazole 20 mg PO DAILY plecanatide (Trulance) 3 mg PO .as needed PRN warfarin 7.5 mg See Protocol PO DAILY Nursing Note HNO CP,SOB,DIET/MED CHANGES,FALLS OR SX OF BLEEDING. CONTINUE 7.5MGM DAILY AND FOLLOW-UP IN 4 WEEKS. GOOD UNDERSTANDING OF DOSING INSTR. 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
== END 2025-03-01 11:13 | disposition home or self-care (01) ==
LOC: HO.ACS 10:55
PROVIDERS: PCP Nurse Practitioner Family; Visit Provider Internal Medicine Medical Oncology
DX: Z79.01 Long term (current) use of anticoagulants (principal)

== ENCOUNTER → 2025-03-01 10:55 | Outpatient (BNVA) | payer MEDICARE, MEDICAID, SELFPAY | PROVIDERS: PCP Nurse Practitioner Family; Visit Provider Internal Medicine Medical Oncology | DX: Z95.2 Presence of prosthetic heart valve (principal); Z79.01 Long term (current) use of anticoagulants; Z51.81 Encounter for therapeutic drug level monitoring | CPT/HCPCS: 85610; 99211 ==

== ENCOUNTER 2025-03-29 10:49 | Outpatient (AMB) | payer MEDICARE, MEDICAID, SELFPAY ==
--- NOTE | 2025-03-29 11:02 | MHC.OFFVISCO ---
Intake Intake Visit Reasons: Anticoagulation Allergies Penicillins Allergy (Verified 03/29/25 10:59) CANT REMEMBER Medication List - Last Reconciled 03/29/25 by Becka Jarrett RN acetaminophen ER (Arthritis Pain Reliever) 650 mg PO Q8H carboxymethylcellulose sodium 0.5% drps ophthalmic (eye) lubiprostone mcg PO PRN omeprazole 20 mg PO DAILY plecanatide (Trulance) 3 mg PO .as needed PRN warfarin 7.5 mg See Protocol PO DAILY Nursing Note INR: 3.5- in therapeutic range of 2.5-3.5 Medications and supplements reviewed- no changes, tylenol prn. No changes in health, diet, medications, or supplements, Denies any signs and symptoms of bleeding or bruising or clotting. Bleeding, bruising, clotting discussed Nutritional guidance given - eat a dark green today and tomm pt states has had cherries and watermelon Dose: 7.5mg x 7 F/U INR: pt req 4 weeks Patient verbalizes understanding of instructions given Coding Level of Care Code Est Patient Level 1 Diagnoses Current use of anticoagulant therapy Z79.01 Assessment & Plan Assessment & Plan (1) Current use of anticoagulant therapy: Code(s): Z79.01 - longterm (current) use of 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
[2025-03-29 11:03] LABS: Prothrombin Time Whole Bld POC 41.7 sec (11.1-13.5); ~PT, ~INR - Anti Coag Clinic 3.5 (0.9-1.1)
== END 2025-03-29 11:08 | disposition home or self-care (01) ==
LOC: HO.ACS 10:49
PROVIDERS: PCP Nurse Practitioner Family; Visit Provider Internal Medicine Medical Oncology
DX: Z79.01 Long term (current) use of anticoagulants (principal)

== ENCOUNTER → 2025-03-29 10:49 | Outpatient (BNVA) | payer MEDICARE, MEDICAID, SELFPAY | PROVIDERS: PCP Nurse Practitioner Family; Visit Provider Internal Medicine Medical Oncology | DX: Z51.81 Encounter for therapeutic drug level monitoring (principal); Z79.01 Long term (current) use of anticoagulants | CPT/HCPCS: 85610; 99211 ==

== ENCOUNTER 2025-04-24 10:45 | Outpatient (AMB) | payer MEDICARE, MEDICAID, SELFPAY ==
[2025-04-24 10:53] LABS: Prothrombin Time Whole Bld POC 25.9 sec (11.1-13.5); ~PT, ~INR - Anti Coag Clinic 2.2 (0.9-1.1)
--- NOTE | 2025-04-24 11:03 | MHC.OFFVISCO ---
Intake Intake Visit Reasons: Anticoagulation Allergies Penicillins Allergy (Verified 04/24/25 10:48) CANT REMEMBER Medication List - Last Reconciled 04/24/25 by Dacia Rae RN acetaminophen ER (Arthritis Pain Reliever) 650 mg PO Q8H carboxymethylcellulose sodium 0.5% drps ophthalmic (eye) lubiprostone mcg PO PRN omeprazole 20 mg PO DAILY plecanatide (Trulance) 3 mg PO .as needed PRN warfarin 7.5 mg See Protocol PO DAILY Nursing Note INR 2.2 out of therapeutic range 2.5-3.5 for mechanical mitral valve Medications and supplements reviewed Patient status: Pt is well - she more greens recently Medications or supplements: no changes Diet: good Denies any signs and symptoms of bleeding or clotting or unusual bruising Bleeding, bruising, clotting discussed Nutritional guidance given: avoid all greens and other high vit k foods, eat more to raise the INR today Dose: booster x 1 11.25mg today then resume 7.5mg daily F/U INR Date: 2 weeks ?? Patient verbalizing understanding of instructions given. Coding Level of Care Code Est Patient Level 1 Diagnoses Current use of anticoagulant therapy Z79.01 Results AMB INR Fingerstick AMB INR Fingerstick 2.2 Last Edit by Dacia Rae RN on 04/24/25 10:55 manual entry Assessment & Plan Assessment & Plan (1) Current use of anticoagulant therapy: Code(s): Z79.01 - correction (current) use of 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
== END 2025-04-24 11:07 | disposition home or self-care (01) ==
LOC: HO.ACS 10:45
PROVIDERS: PCP Nurse Practitioner Family; Visit Provider Internal Medicine Medical Oncology
DX: Z79.01 Long term (current) use of anticoagulants (principal)

== ENCOUNTER → 2025-04-24 10:45 | Outpatient (BNVA) | payer MEDICARE, MEDICAID, SELFPAY | PROVIDERS: PCP Nurse Practitioner Family; Visit Provider Internal Medicine Medical Oncology | DX: Z51.81 Encounter for therapeutic drug level monitoring (principal); Z79.01 Long term (current) use of anticoagulants | CPT/HCPCS: 85610; 99211 ==

== ENCOUNTER 2025-05-09 11:03 | Outpatient (AMB) | payer MEDICARE, MEDICAID, SELFPAY ==
[2025-05-09 11:09] LABS: Prothrombin Time Whole Bld POC 30.9 sec (11.1-13.5); ~PT, ~INR - Anti Coag Clinic 2.6 (0.9-1.1)
--- NOTE | 2025-05-09 11:14 | MHC.OFFVISCO ---
Intake Intake Visit Reasons: Anticoagulation Allergies Penicillins Allergy (Verified 05/09/25 11:06) CANT REMEMBER Medication List - Last Reconciled 05/09/25 by Dacia Rae RN acetaminophen ER (Arthritis Pain Reliever) 650 mg PO Q8H carboxymethylcellulose sodium 0.5% drps ophthalmic (eye) lubiprostone mcg PO PRN omeprazole 20 mg PO DAILY plecanatide (Trulance) 3 mg PO .as needed PRN warfarin 7.5 mg See Protocol PO DAILY Nursing Note INR: 2.6 in therapeutic range 2.5-3.5 Medications and supplements reviewed No changes in health, diet, medications, or supplements, Denies any signs and symptoms of bleeding or bruising or clotting. 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
== END 2025-05-09 11:16 | disposition home or self-care (01) ==
LOC: HO.ACS 11:03
PROVIDERS: PCP Nurse Practitioner Family; Visit Provider Internal Medicine Medical Oncology
DX: Z79.01 Long term (current) use of anticoagulants (principal)

== ENCOUNTER → 2025-05-09 11:03 | Outpatient (BNVA) | payer MEDICARE, MEDICAID, SELFPAY | PROVIDERS: PCP Nurse Practitioner Family; Visit Provider Internal Medicine Medical Oncology | DX: Z51.81 Encounter for therapeutic drug level monitoring (principal); Z79.01 Long term (current) use of anticoagulants | CPT/HCPCS: 85610; 99211 ==

== ENCOUNTER 2025-06-06 10:48 | Outpatient (AMB) | payer MEDICARE, MEDICAID, SELFPAY ==
--- NOTE | 2025-06-06 10:57 | MHC.OFFVISCO ---
Intake Intake Visit Reasons: Anticoagulation Allergies Penicillins Allergy (Verified 06/06/25 10:50) CANT REMEMBER Medication List - Last Reconciled 06/06/25 by Cherry Parker, RN acetaminophen ER (Arthritis Pain Reliever) 650 mg PO Q8H carboxymethylcellulose sodium 0.5% drps ophthalmic (eye) lubiprostone mcg PO PRN omeprazole 20 mg PO DAILY plecanatide (Trulance) 3 mg PO .as needed PRN warfarin 7.5 mg See Protocol PO DAILY Nursing Note NO CP,SOB,DIET/MED CHANGES,FALLS OR SX OF BLEEDING. CONTINUE 7.5MGM DAILY AND FOLLOW-UP IN 4 WEEKS GOOD UNDERSTANDING OF DOSING INSTR. Coding Level of Care Code Est Patient Level 1 Diagnoses Current use of anticoagulant therapy Z79.01 Results AMB INR Fingerstick AMB INR Fingerstick 2.5 Last Edit by Cherry Parker RN on 06/06/25 10:56 Assessment & Plan Assessment & Plan (1) Current use of anticoagulant therapy: Code(s): Z79.01 - [facility] (current) use of 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
[2025-06-07 10:14] LABS: Prothrombin Time Whole Bld POC 30.4 sec (11.1-13.5); ~PT, ~INR - Anti Coag Clinic 2.5 (0.9-1.1)
== END 2025-06-06 11:01 | disposition home or self-care (01) ==
LOC: HO.ACS 10:48
PROVIDERS: PCP Nurse Practitioner Family; Visit Provider Internal Medicine Medical Oncology
DX: Z79.01 Long term (current) use of anticoagulants (principal)

== ENCOUNTER → 2025-06-06 10:48 | Outpatient (BNVA) | payer MEDICARE, MEDICAID, SELFPAY | PROVIDERS: PCP Nurse Practitioner Family; Visit Provider Internal Medicine Medical Oncology | DX: Z95.2 Presence of prosthetic heart valve (principal); Z51.81 Encounter for therapeutic drug level monitoring; Z79.01 Long term (current) use of anticoagulants | CPT/HCPCS: 85610; 99211 ==

== ENCOUNTER 2025-07-10 11:00 | Outpatient (AMB) | payer MEDICARE, MEDICAID, SELFPAY ==
[2025-07-10 11:11] LABS: Prothrombin Time Whole Bld POC 35.8 sec (11.1-13.5); ~PT, ~INR - Anti Coag Clinic 3.0 (0.9-1.1)
--- NOTE | 2025-07-10 11:14 | MHC.OFFVISCO ---
Intake Intake Visit Reasons: Anticoagulation Allergies Penicillins Allergy (Verified 07/10/25 11:03) CANT REMEMBER Medication List - Last Reconciled 07/10/25 by Dacia Rae RN acetaminophen ER (Arthritis Pain Reliever) 650 mg PO Q8H carboxymethylcellulose sodium 0.5% drps ophthalmic (eye) lubiprostone mcg PO PRN omeprazole 20 mg PO DAILY plecanatide (Trulance) 3 mg PO .as needed PRN warfarin 7.5 mg See Protocol PO DAILY Nursing Note INR: 3.0 in therapeutic range Medications and supplements reviewed No changes in health, diet, medications, or supplements, Denies any signs and symptoms of bleeding or bruising or clotting. Bleeding, bruising, clotting discussed Nutritional guidance given Dose: 7.5MG DAILY F/U INR: 4 WEEKS Patient verbalizes understanding of instructions given Coding Level of Care Code Est Patient Level 1 Diagnoses Current use of anticoagulant therapy Z79.01 Assessment & Plan Assessment & Plan (1) Current use of anticoagulant therapy: Code(s): Z79.01 - half-way (current) use of 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
== END 2025-07-10 11:16 | disposition home or self-care (01) ==
LOC: HO.ACS 11:00
PROVIDERS: PCP Nurse Practitioner Family; Visit Provider Internal Medicine Medical Oncology
DX: Z79.01 Long term (current) use of anticoagulants (principal)

== ENCOUNTER → 2025-07-10 11:00 | Outpatient (BNVA) | payer MEDICARE, MEDICAID, SELFPAY | PROVIDERS: PCP Nurse Practitioner Family; Visit Provider Internal Medicine Medical Oncology | DX: Z95.2 Presence of prosthetic heart valve (principal); Z51.81 Encounter for therapeutic drug level monitoring; Z79.01 Long term (current) use of anticoagulants | CPT/HCPCS: 85610; 99211 ==

== ENCOUNTER 2025-08-07 11:00 | Outpatient (AMB) | payer MEDICARE, MEDICAID, SELFPAY ==
--- OUTSIDE RECORDS SUMMARY | 2025-08-05 16:21 | XMS_ITS | Encounter Summary ---
Author Organization [facility] Address [address] [place] [address] Care Team Providers Care Resort Host Name Role Phone Physician, Pcp Unknown Primary Care Provider Oxana vailable Reason for Visit * Reason Comments Chest Pain Constant X2 weeks Encounter Details Date Type Department Care Team (Late st Contact Info) Description 08/05/2025 4:21 PM EST - 08/05/2025 4:22 PM EST Emergency [facility] Emergency [address] [place] [address] Mag Haile MD [address] [place] [address] Chest pain with low risk for cardiac etiology (Primary Dx) Discharge Disposition: Home or Self Care Social History Tobacco Use Types Packs/Day Years Used Date Smoking Tobacco: Never Smokeless Tobacco: Never Tobacco Cessation:Counseling Given: Not Answered Comments Unknown Sex and Gender Information Value Date Recorded Sex Assigned at Not on file Legal Sex Female 9:03 AM EST Gender Identity Not on file Sexual Orientation Not on file documented as of this encounter Last Filed Vital Signs Vital Sign Reading Time Taken Comments Blood Pressure 151/70 08/05/2025 4:14 PM EST Pulse 68 08/05/2025 4:14 PM EST Temperature 36.4 C (97.5 F) 08/05/2025 4:14 PM EST Respiratory Rate 16 08/05/2025 4:14 PM EST Oxygen Saturation 98% 08/05/2025 4:14 PM EST Inhaled Oxygen Concentration - - Weight 75.8 kg (167 lb) 08/05/2025 12:32 PM EST Height 160 cm (5' 3 ) 08/05/2025 12:32 PM EST Body Mass Index 29.58 08/05/2025 12:32 PM EST documented in this encounter Functional Status * Calculated C-SSRS Risk Score (Lifetime/Recent) Answer Date of Assessment Author No Risk Indicated 08/05/2025 12:31 PM EST Cheyenne Elam RN * Canadian Suicide Severity Rating Scale (Screener/Recent Self-Report) Question Answer Date of Assessment Author 1. Wish to be (Past 1 Month) No 025 12:31 PM EST Cheyenne Elam RN 2. Non-Specific Active Suici anya Thoughts (Past 1 Month) No 08/05/2025 12:31 PM EST Martin Elam RN 6. Suicidal Behavior (Lifetime) No 12:31 PM EST Cheyenne Elam RN documented as of this encounter Discharge Instructions * Discharge Instructions* Mag Haile MD - 08/05/2025 4:14 PM EST Today you were evaluated for chest pain. Based on your EKG, labs, x-ray it appears unlikely to be acardiac cause. A blood test for screening for blood clots was also negative. I believe based on your exam is most likely something muscular. You can take Tylenol as needed for pain. Do not lift anything too heavy. Follow-up with your doctor for reevaluation. Return to the hospital for worsening symptoms. * Attachments The following attachments cannot be sent through Care Everywhere. * Chest Pain (Brazilian) documented in this encounter Discharge Disposition Disposition Code Departure Means Destination Comment s Home or Self Care D/c instructions reviewed with and understood by pt. Pt understands to take tylenol as needed for pain, to f/u with her primary and that she can return to the ER at any time if needed. documented in this encounter Progress Notes * Mag Haile MD - 08/05/2025 12:27 PM EST Images from the original note were not included. [facility] EMERGENCY DEPARTMENT ENCOUNTER CHIEF COMPLAINT Chief Complaint Patient presents with ??? 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 Present for the past 2 weeks, constant, located on the right side of the chest, sometimes towards the left. Sometimes goes towards the back or left arm. Worse with laying down and coughing. Has some associated shortness of breath. No nausea or diaphoresis. Not exertional. No history of NC. No recent travel or immobilization, no history of VTE. FOCUSED PHYSICAL EXAM Vitals: 08/05/25 1232 BP: (!) 156/75 BP Location: Left arm Patient Position: Sitting Pulse: 73 Resp: 17 Temp: 36.4 ??C (97.5 ??F) TempSrc: Oral SpO2: 99% Weight: 75.8 kg (167 lb) Height: 1.6 m (63 ) Physical Exam General Appearance: No acute distress Skin: Dry Eyes: EOMI, no scleral icterus HENT: Normocephalic/atraumatic, moist mucous membranes Neck: Supple, normal range of motion Cardiovascular: Regular rate and rhythm, no murmur, 2+ radial and DP pulses Respiratory: Lungs clear to auscultation bilaterally, no respiratory distress, no wheezing or rhonchi Abdomen: Soft, non-tender, non-distended Musculoskeletal: Trace edema bilateral lower extremities, tenderness at bilateral sternocostal margin Neurologic: Awake, alert, no obvious deficits, moving all extremities. Psychiatric: Appropriate, cooperative DIAGNOSTIC TESTING Based on the patient's history and physical exam the following labs and radiology studies were ordered in order to evaluate, work-up and determine best course of treatment for the patient. The studies were ordered by me and will be interpreted by the provider who completes the patient's course: Clinical Impressions as of 08/05/25 1614 Chest pain with low risk for cardiac etiology Labs Reviewed CBC AND DIFFERENTIAL Narrative: The following orders were created for panel order CBC and differential. Procedure Abnormality Status --------- ------ CBC auto differential[[id number]] Please view results for these tests on the individual orders. COMPREHENSIVE METABOLIC PANEL TROPONIN I HIGH SENSITIVITY TROPONIN I HIGH SENSITIVITY D-DIMER PROTHROMBIN TIME WITH INR ACTIVATED PARTIAL THROMBOPLASTIN TIME CBC WITH AUTO DIFFERENTIAL XR Chest 2 Views (Results Pending) Based on the above history and exam the following medications and/or treatments were ordered in order to start initial treatment and stabilization the patient's condition: Medications - No data to display The patient is condition and response to care provided will be followed closely and may be transitioned to another provider or continued by me. This is only an initial rapid medical evaluation. (Please note that portions of this note were completed with a voice recognition program. Quite often unanticipated grammatical, syntax, homophones, and other interpretive errors are inadvertently transcribed by the computer software. These should have been corrected during proofreading. If you haveany questions, please contact the author of this note for clarification.) Mag Haile MD (electronically signed) 12:35 PM EST * Cheyenne Elam RN - 08/05/2025 12:27 PM EST Patient to ED for constant left sided chest pain that radiates into the left arm x2 weeks. Denies nausea, diaphoresis, vomiting and headache. Reports shortness of breath and cough. Reports laying down makes the pain worse. Currently on blood thinner for mechanical valve. Reports bruising to left hand of unknown origin. * Mag Haile MD - 08/05/2025 12:25 PM EST Images from the original note were not included. [facility] EMERGENCY DEPARTMENT ENCOUNTER Patient: Cheryle Craft MR# [id number] Time of Service: No admission date for patient encounter. History PCP: Pcp Unknown Physician. Chief Complaint Patient presents with Chest Pain Constant X2 weeks 65-year-old female with history of valve replacement on Coumadin presenting with chest pain. Present for the past 2 weeks, constant, located on the right side of the chest, sometimes towards the left. Sometimes goes towards the back or left arm. Worse with laying down and coughing. Has some associated shortness of breath. No nausea or diaphoresis. Not exertional. No history of NC. No recent travel or immobilization, no history of VTE. History gathered with assistance of moving worker at bedside. ROS Negative except for HPI. Allergies: Penicillins Medical History[1] Problem List[2] Surgical History[3] Family History[4] Social History[5] Physical Exam Vitals: 08/05/25 1232 BP: (!) 156/75 BP Location: Left arm Patient Position: Sitting Pulse: 73 Resp: 17 Temp: 36.4 ??C (97.5 ??F) TempSrc: Oral SpO2: 99% Weight: 75.8 kg (167 lb) Height: 1.6 m (63 ) General Appearance: No acute distress Skin: Dry Eyes: EOMI, no scleral icterus HENT: Normocephalic/atraumatic, moist mucous membranes Neck: Supple, normal range of motion Cardiovascular: Regular rate and rhythm, no murmur, 2+ radial and DP pulses Respiratory: Lungs clear to auscultation bilaterally, no respiratory distress, no wheezing or rhonchi Abdomen: Soft, non-tender, non-distended Musculoskeletal: Trace edema bilateral lower extremities, tenderness at bilateral sternocostal margin Neurologic: Awake, alert, no obvious deficits, moving all extremities. Psychiatric: Appropriate, cooperative EKG/Rhythm Strip: Normal sinus rhythm, rate 72, narrow complex, no acute ST changes Results Results for orders placed or performed during the hospital encounter of 08/05/25 ECG 12 lead Collection Time: 08/05/25 12:39 PM Result Value Ref Range Ventricular Rate ECG 72 BPM Atrial Rate 72 BPM P-R Interval 190 ms QRS Duration 92 ms Q-T Interval 434 ms QTc 475 ms P Wave [place] 57 degrees R [place] 49 degrees T [place] 43 degrees ECG Interpretation Normal sinus rhythm Normal ECG When compared with ECG of 27-AUG-2001 07:55, Sinus rhythm has replaced Atrial fibrillation Troponin I high sensitivity (NOW and then in 1 hour) Collection Time: 08/05/25 2:01 PM Result Value Ref Range High Sensitivity Troponin I 14 <=34 ng/L D-dimer, quantitative Collection Time: 08/05/25 2:01 PM Result Value Ref Range D-Dimer, Quant (D-DU) <150 <=230 ng/mL DDU Prothrombin time with INR Collection Time: 08/05/25 2:01 PM Result Value Ref Range Protime 34.7 (H) 10.6 - 13.9 sec INR 2.8 APTT Collection Time: 08/05/25 2:01 PM Result Value Ref Range aPTT 52.5 (H) 24.1 - 39.3 sec CBC auto differential Collection Time: 08/05/25 2:01 PM Result Value Ref Range WBC 4.9 4.8 - 10.8 K/mcL RBC 4.50 3.80 - 4.80 M/mcL Hemoglobin 12.7 11.5 - 16.0 g/dL Hematocrit 39.5 35.0 - 47.0 % MCV 88.2 79.0 - 98.0 FL MCH 28.3 27.0 - 32.0 pcg MCHC 32.2 32.0 - 37.0 g/dL RDW 14.6 11.0 - 15.0 % Platelets 167 130 - 400 K/mcL MPV 12.9 (H) 7.0 - 11.0 FL NRBC 0.0 <1.0 % NRBC Absolute 0.00 <0.10 K/mcL Neutrophils Relative 63.7 % Lymphocytes Relative 27.0 % Monocytes Relative 6.5 % Eosinophils Relative 1.6 % Basophils Relative 1.0 % Immature Granulocytes Relative 0.2 % Neutrophils Absolute 3.13 1.50 - 7.00 K/mcL Lymphocytes Absolute 1.33 1.00 - 5.00 K/mcL Monocytes Absolute 0.32 0.20 - 1.00 K/mcL Eosinophils Absolute 0.08 0.00 - 0.50 K/mcL Basophils Absolute 0.05 0.00 - 0.20 K/mcL Immature Granulocytes Absolute 0.01 0.00 - 0.03 K/mcL Comprehensive metabolic panel Collection Time: 08/05/25 3:18 PM Result Value Ref Range Sodium 138 133 - 145 mmol/L Potassium 4.3 3.5 - 5.5 mmol/L Chloride 102 96 - 110 mmol/L CO2 26 21 - 32 mmol/L Anion Gap 10 3 - 11 Glucose 72 70 - 100 mg/dL BUN 14 5 - 25 mg/dL Creatinine 0.96 0.50 - 1.10 mg/dL eGFR 65 >=60 mL/min/1.73m2 BUN/Creatinine Ratio 14.6 Calcium 9.1 8.5 - 10.5 mg/dL AST (SGOT) 24 10 - 42 unit/L ALT (SGPT) 12 10 - 60 unit/L Alkaline Phosphatase 131 (H) 42 - 121 unit/L Total Protein 7.4 6.0 - 8.0 g/dL Albumin 4.3 3.2 - 5.0 g/dL Total Bilirubin 0.6 0.0 - 1.4 mg/dL Troponin I high sensitivity (NOW and then in 1 hour) Collection Time: 08/05/25 3:18 PM Result Value Ref Range High Sensitivity Troponin I 15 <=34 ng/L XR Chest 2 Views Final Result Minimal atelectasis scarring in the lingula. -------- FINAL REPORT -------- Dictated By: Seth Hardwick Dictated Date: 08/05/2025 14:19 ET Assigned Physician: Seth Hardwick Reviewed and Electronically Signed By: Seth Hardwick Signed Date: 08/05/2025 14:21 ET Workstation ID: [id number] Transcribed By: Self Edit Transcribed Date: 08/05/2025 14:19 ET Procedures Medical Decision Making 65-year-old female presenting due to chest pain. History of valve replacement on Coumadin, otherwise does not have history of diabetes, hypertension, CAD. Differential diagnosis includes ACS, PE, pneumonia, pneumothorax, musculoskeletal pain. Does have reproducible tenderness on exam. Cannot PERC due to age, will get dimer H (0- slightly suspicious) E (0- normal) A (2- >=65) R (0- no risk factors) T (0- neg) Heart score 2 Trop neg x 2 Dimer neg Chest x-ray negative for acute cardiopulmonary process. Will discharge home with plan for pain control. Cannot take NSAIDs due to anticoagulated status. While patient take Tylenol as needed, avoid heavy lifting, to follow-up with primary care doctor for reevaluation. Return to the hospital for worsening symptoms. Labs ordered in ED independently reviewed by me. My interpretation of the labs as above Clinical Impressions as of 08/05/25 1616 Chest pain with low risk for cardiac etiology Disposition: Discharge CLINICAL IMPRESSION: 1. Chest pain with low risk for cardiac etiology 08/05/2025 Mag Haile MD [1] History reviewed. No pertinent past medical history. [2] There is no problem list on file for this patient. [3] Past Surgical History: Procedure Laterality Date CARDIAC VALVE REPLACEMENT [4] No family history on file. [5] Social History Tobacco Use Smoking status: Never Smokeless tobacco: Never Mag Haile MD 08/05/25 1618 documented in this encounter Plan of Treatment Scheduled Orders Name Type Priority Associated Diagnoses Orde r Schedule ECG 12 lead ECG STAT Once for 1 Oc currences starting 08/05/2025 until 08/05/2025 documented as of this encounter Procedures Procedure Name Priority Date/Time Associated Diagnosis Comments ECG ANNOTATED 08/07/2025 TROPONIN I HIGH SENSITIVITY Timed 08/05/2025 3:18 PM EST COMPREHENSIVE METABOLIC PANEL STAT 08/05/2025 3:18 PM EST XR CHEST 2 VIEWS STAT 08/05/2025 2:08 PM EST TROPONIN I HIGH SENSITIVITY Timed 08/05/2025 2:01 PM EST CBC WITH AUTO DIFFERENTIAL STAT 08/05/2025 2:01 PM EST ACTIVATED PARTIAL THROMBOPLASTIN TIME STAT 08/05/2025 2:01 PM EST PROTHROMBIN TIME WITH INR STAT 08/05/2025 2:01 PM EST D-DIMER STAT 08/05/2025 2:01 PM EST CBC AND DIFFERENTIAL STAT 08/05/2025 2:01 PM EST ECG 12-LEAD STAT 08/05/2025 12:39 PM EST SST - GOLD Routine 08/05/2025 12:00 AM EST EXTRA TUBES Routine 08/05/2025 12:00 AM EST documented in this encounter Results * ECG-Annotated (08/07/2025) us Provider Onbase MD ECG ORDERABLES Final Result * Troponin I high sensitivity (NOW and then in 1 hour) (08/05/2025 3:18 PM EST) [facility] High Sensitivity Troponin I 15 <=34 ng/L 08/05/2025 3:47 PM [facility] Blood Venous blood specimen / Unknown Venipuncture / Unknown 08/05/2025 3:18 PM EST 08/05/2025 3:23 PM EST us Mag Haile MD LAB BLOOD ORDERABLES Final Resul t [facility] [address] [place] [address], * (ABNORMAL) Comprehensive metabolic panel (08/05/2025 3:18 PM EST) [facility] Sodium 138 133 - 145 mmol/L 08/05/2025 3:48 PM [facility] Potassium 4.3 3.5 - 5.5 mmol/L 08/05/2025 3:48 PM [facility] Chloride 102 96 - 110 mmol/L 08/05/2025 3:48 PM [facility] CO2 26 21 - 32 mmol/L 08/05/2025 3:48 PM [facility] Anion Gap 10 3 - 11 08/05/2025 3:48 PM [facility] Glucose 72 70 - 100 mg/dL 08/05/2025 3:48 PM [facility] BUN 14 5 - 25 mg/dL 08/05/2025 3:48 PM [facility] Creatinine 0.96 0.50 - 1.10 mg/dL 08/05/2025 3:48 PM [facility] eGFR 65 >=60 mL/min/1. 73m2 08/05/2025 3:48 PM [facility] Comment:Calculation based on the Chronic Kidney Disease Epidemiology Collaboration (CKD-EPI) equation refit without adjustment for race. BUN/Creatinine Ratio 14.6 08/05/2025 3:48 PM [facility] Calcium 9.1 8.5 - 10.5 mg/dL 08/05/2025 3:48 PM [facility] AST (SGOT) 24 10 - 42 unit/L 08/05/2025 3:48 PM [facility] ALT (SGPT) 12 10 - 60 unit/L 08/05/2025 3:48 PM [facility] Alkaline Phosphatase 131(H) 42 - 121 unit/L 08/05/2025 3:48 PM [facility] Total Protein 7.4 6.0 - 8.0 g/dL 08/05/2025 3:48 PM [facility] Albumin 4.3 3.2 - 5.0 g/dL 08/05/2025 3:48 PM [facility] Total Bilirubin 0.6 0.0 - 1.4 mg/dL 08/05/2025 3:48 PM [facility] Blood Venous blood specimen / Unknown Venipuncture / Unknown 08/05/2025 3:18 PM EST 08/05/2025 3:23 PM EST Mag Haile MD LAB BLOOD ORDERABLES Final Resul t [facility] [address] [place] [address], * XR Chest 2 Views (08/05/2025 2:08 PM EST) Anatomical Region Laterality Modality Body Radiographic Amalia ging 08/05/2025 2:19 PM EST Impressions 08/05/2025 2:21 PM EST Minimal atelectasis scarring in the lingula. -------- FINAL REPORT -------- Dictated By: Seth Hardwick Dictated Date: 08/05/2025 14:19 ET Assigned Physician: Seth Hardwick Reviewed and Electronically Signed By: Seth Hardwick Signed Date: 08/05/2025 14:21 ET Workstation ID: [id number] Transcribed By: Self Edit Transcribed Date: 08/05/2025 14:19 ET Narrative 08/05/2025 2:21 PM EST EXAMINATION: Chest 2 views. CLINICAL INDICATION: Chest pain. COMPARISON: None. FINDINGS: The lungs are well-expanded and clear acute pneumonic process. There is minimal scarring or atelectasis in the lingular segment. Heart size and pulmonary vascularity is normal. There is valvular prosthesis with median sternotomy sutures. No gross bony abnormality. Procedure Note Seth Hardwick MD - 08/05/2025 EXAMINATION: Chest 2 views. CLINICAL INDICATION: Chest pain. COMPARISON: None. FINDINGS: The lungs are well-expanded and clear acute pneumonic process.There is minimal scarring or atelectasis in the lingular segment. Heartsize and pulmonary vascularity is normal. There is valvular prosthesiswith median sternotomy sutures. No gross bony abnormality. IMPRESSION: Minimal atelectasis scarring in the lingula. -------- FINAL REPORT -------- Dictated By: Seth Hardwick Dictated Date: 08/05/2025 14:19 ET Assigned Physician: Seth Hardwick Reviewed and Electronically Signed By: Seth Hardwick Signed Date: 08/05/2025 14:21 ET Workstation ID: [id number] Transcribed By: Self Edit Transcribed Date: 08/05/2025 14:19 ET us Mag Haile MD IMG XR PROCEDURES Final Result * (ABNORMAL) CBC auto differential (08/05/2025 2:01 PM EST) WBC 4.9 4.8 - 10.8 K/[facility] HEMETOLOGY METHOD 08/05/2025 2:13 PM EST [facility] ([facility]) [facility] RBC 4.50 3.80 - 4.80 M/[facility] LAB HEMETOLOGY METHOD 08/05/2025 2:13 PM [facility] Hemoglobin 12.7 11.5 - 16.0 g/dL LAB HEMETOLOGY METHOD 08/05/2025 2:13 PM [facility] Hematocrit 39.5 35.0 - 47.0 % LAB HEMETOLOGY METHOD 08/05/2025 2:13 PM [facility] MCV 88.2 79.0 - 98.0 FL LAB HEMETOLOGY METHOD 08/05/2025 2:13 PM [facility] MCH 28.3 27.0 - 32.0 pcg LAB HEMETOLOGY METHOD 08/05/2025 2:13 PM [facility] MCHC 32.2 32.0 - 37.0 g/dL LAB HEMETOLOGY METHOD 08/05/2025 2:13 PM [facility] RDW 14.6 11.0 - 15.0 % LAB HEMETOLOGY METHOD 08/05/2025 2:13 PM [facility] Platelets 167 130 - 400 K/mcL LAB HEMETOLOGY METHOD 08/05/2025 2:13 PM [facility] MPV 12.9(H) 7.0 - 11.0 FL LAB HEMETOLOGY METHOD 08/05/2025 2:13 PM [facility] NRBC 0.0 <1.0 % LAB HEMETOLOGY METHOD 08/05/2025 2:13 PM [facility] NRBC Absolute 0.00 <0.10 K/mcL LAB HEMETOLOGY METHOD 08/05/2025 2:13 PM [facility] Neutrophils Relative 63.7 % LAB HEMETOLOGY METHOD 08/05/2025 2:13 PM [facility] Lymphocytes Relative 27.0 % LAB HEMETOLOGY METHOD 08/05/2025 2:13 PM [facility] Monocytes Relative 6.5 % LAB HEMETOLOGY METHOD 08/05/2025 2:13 PM [facility] Eosinophils Relative 1.6 % LAB HEMETOLOGY METHOD 08/05/2025 2:13 PM [facility] Basophils Relative 1.0 % LAB HEMETOLOGY METHOD 08/05/2025 2:13 PM [facility] Immature Granulocytes Relative 0.2 % LAB HEMETOLOGY METHOD 08/05/2025 2:13 PM EST [facility] Neutrophils Absolute 3.13 1.50 - 7.00 K/mcL LAB HEMETOLOGY METHOD 08/05/2025 2:13 PM [facility] Lymphocytes Absolute 1.33 1.00 - 5.00 K/mcL LAB HEMETOLOGY METHOD 08/05/2025 2:13 PM [facility] Monocytes Absolute 0.32 0.20 - 1.00 K/mcL LAB HEMETOLOGY METHOD 08/05/2025 2:13 PM EST [facility] Eosinophils Absolute 0.08 0.00 - 0.50 K/mcL LAB HEMETOLOGY METHOD 08/05/2025 2:13 PM [facility] Basophils Absolute 0.05 0.00 - 0.20 K/mcL LAB HEMETOLOGY METHOD 08/05/2025 2:13 PM [facility] Immature Granulocytes Absolute 0.01 0.00 - 0.03 K/mcL LAB HEMETOLOGY METHOD 08/05/2025 2:13 PM EST [facility] Blood Venous blood specimen / Unknown Venipuncture / Unknown 08/05/2025 2:01 PM EST 08/05/2025 2:09 PM EST us Mag Haile MD LAB BLOOD ORDERABLES Final Resul t [facility] [address] [place] [address], * (ABNORMAL) APTT (08/05/2025 2:01 PM EST) aPTT 52.5(H) 24.1 - 39.3 sec LAB COAGULATION METHOD 08/05/2025 2:29 PM EST [facility] Blood Venous blood specimen / Unknown Venipuncture / Unknown 08/05/2025 2:01 PM EST 08/05/2025 2:09 PM EST us Mag Haile MD LAB BLOOD ORDERABLES Final Resul t Performing Organization Address [facility] [[email or web address]] Co de Phone Number [facility] [address] [place] [address], [place] [phone] * (ABNORMAL) Prothrombin time with INR (08/05/2025 2:01 PM EST) Pathologist [facility] [place] Protime 34.7(H) 10.6 - 13.9 sec LAB COAGULATION METHOD 08/05/2025 2:28 PM EST [facility] INR 2.8 LAB COAGULATION METHOD 08/05/2025 2:28 PM EST [facility] Blood Venous blood specimen / Unknown Venipuncture / Unknown 08/05/2025 2:01 PM EST 08/05/2025 2:09 PM EST us Mag Haile MD LAB BLOOD ORDERABLES Final Resul t Performing Organization Address [facility]/ZIP Co de Phone Number [facility] [address] [place] [address], [place] [phone] * D-dimer, quantitative (08/05/2025 2:01 PM EST) Pathologist [facility] [place] D-Dimer, Quant (D-DU) <150 <=230 ng/mL DDU LAB COAGULATION METHOD 08/05/2025 2:29 PM EST [facility] Blood Venous blood specimen / Unknown Venipuncture / Unknown 08/05/2025 2:01 PM EST 08/05/2025 2:09 PM EST Narrative [facility] - 08/05/2025 2:29 PM EST D-Dimer <230 ng/mL (D-Dimer units) is the threshold for exclusion of DVT/PE. D-Dimer may be elevated in: Critically ill, severely infected, trauma patients, DIC, acute CVA, acute NC, unstable angina, AF, old age, , and smoking. D-Dimer may be decreased with: Initiation of heparin therapy and oral anticoagulants. Mag Haile MD LAB BLOOD ORDERABLES Final Resul t Performing Organization Address [facility]/ZIP Co de Phone Number [facility] [address] [place] [address], [place] [phone] * Troponin I high sensitivity (NOW and then in 1 hour) (08/05/2025 2:01 PM EST) High Sensitivity Troponin I 14 <=34 ng/L 08/05/2025 2:31 PM EST [facility] Blood Venous blood specimen / Unknown Venipuncture / Unknown 08/05/2025 2:01 PM EST 08/05/2025 2:09 PM EST Mag Haile MD LAB BLOOD ORDERABLES Final Resul t Performing Organization Address [facility]/ZIP Co de Phone Number [facility] [address] [place] [address], [place] [phone] * ECG 12 lead (08/05/2025 12:39 PM EST) Ventricular Rate ECG 72 BPM GEMUSE Atrial Rate 72 BPM GEMUSE P-R Interval 190 ms GEMUSE QRS Duration 92 ms GEMUSE Q-T Interval 434 ms GEMUSE QTc 475 ms GEMUSE P Wave [place] 57 degrees GEMUSE R [place] 49 degrees GEMUSE T [place] 43 degrees GEMUSE ECG Interpretation Normal sinus rhythm Normal ECG When compared with ECG of 27-AUG-2001 07:55, Sinus rhythm has replaced Atrial fibrillation Confirmed by ROSHNI CHILDERS ([id number]) on 08/06/2025 2:41:35 PM GEMUSE 08/05/2025 12:3 9 PM EST 08/06/2025 2:41 PM EST us Mag Haile MD ECG ORDERABLES Final Result Performing Organization Address City/[facility]/ZIP Co de Phone Number GEMUSE * SST tube (08/05/2025 12:00 AM EST) Extra Tube Hold for add-ons. 08/05/2025 5:01 PM EST [facility] Comment:Auto resulted. Blood Venous blood specimen / Unknown 08/05/2025 08/05/2025 3:24 PM EST us Mag Haile MD LAB BLOOD ORDERABLES Final Resul t Performing Organization Address City/[facility] [[email or web address]] Co de Phone Number [facility] [address] [place] [address], documented in this encounter Visit Diagnoses Diagnosis Chest pain with low risk for cardiac etiology- Primary documented in this encounter Care Teams Resort Host Relationship Specialty Start Date End Date Physician, Pcp Unknown PCP - General 08/05/25 documented as of this encounter
[2025-08-07 11:09] LABS: Prothrombin Time Whole Bld POC 37.4 sec (11.1-13.5); ~PT, ~INR - Anti Coag Clinic 3.1 (0.9-1.1)
--- NOTE | 2025-08-07 11:09 | MHC.OFFVISCO ---
Intake Intake Visit Reasons: Anticoagulation Allergies Penicillins Allergy (Verified 08/07/25 11:04) CANT REMEMBER Medication List - Last Reconciled 08/07/25 by Sena Adams, [facility] acetaminophen ER (Arthritis Pain Reliever) 650 mg PO Q8H carboxymethylcellulose sodium 0.5% drps ophthalmic (eye) lubiprostone mcg PO PRN omeprazole 20 mg PO DAILY plecanatide (Trulance) 3 mg PO .as needed PRN warfarin 7.5 mg See Protocol PO DAILY Nursing Note INR: 3.1 in therapeutic range of 2.5-3.5 Medications and supplements reviewed No changes in health, diet, medications, or supplements, Denies any signs and symptoms of bleeding or bruising or clotting. 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
--- OUTSIDE RECORDS SUMMARY | 2025-08-07 12:51 | XMS_ITS | Clinical Summary ---
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 Role Phone Physician, Pcp Unknown Primary Care Provider Oxana vailable Allergies Active Allergy Reactions Criticality Noted Date Comments Penicillins Rash 08/05/2025 Encounters Date Type Department Care Team Description 08/05/2025 4:21 PM EST - 08/05/2025 4:22 PM EST Emergency [facility] Emergency [address] [place] [address] Mag Haile MD Chest pain with low risk for cardiac etiology (Primary Dx) Discharge Disposition: Home or Self Care from Last 3 Months Surgical History Surgery Date Site/Laterality Comments CARDIAC VALVE REPLACEMENT Social History Tobacco Use Types Packs/Day Years Used Date Smoking Tobacco: Never Smokeless Tobacco: Never Tobacco Cessation:Counseling Given: Not Answered Comments Unknown Sex and Gender Information Value Date Recorded Sex Assigned at Not on file Legal Sex Female 9:03 AM EST Gender Identity Not on file Sexual Orientation Not on file Last Filed Vital Signs Vital Sign Reading [...] Mass Index 29.58 08/05/2025 12:32 PM EST Plan of Treatment Health Maintenance Due Date Last Done Comments Breast Cancer Screening 1960 Colorectal Cancer Screening: Colonoscopy 1960 Hepatitis A Vaccines (1 of 2 - Risk 2-dose series) 1977 RSV Immunization Adult Patients (1 - Risk 50-74 years 1-dose series) 2008 Zoster Vaccines (1 of 2) 2008 Hepatitis B Vaccines (1 of 3 - Risk 3-dose series) 2018 Depression Screening 08/10/2024 DTaP,Tdap,and Td Vaccines (2 - Td or Tdap) 02/19/2025 02/19/2015 COVID-19 Vaccine ( season) 2025 05/20/2023, 08/21/2022, 02/18/2022, Additional history exists Influenza Vaccine (#1) 2025 , 06/24/2021, 05/27/2020, Additional history exists Cholesterol Screening (Lipid Panel) 08/05/2025 Falls Risk Assessment 08/05/2025 Hepatitis C Screening 08/05/2025 Medicare Annual Wellness Visit 08/05/2025 Osteoporosis Screening (Bone Density Screening) 08/05/2025 Social Influencers of Health Screening 08/05/2025 Pneumococcal Vaccine: 50+ Years Completed 10/19/2023 HIB Vaccines Aged Out No longer eligi ble based on patient's age to complete this topic HPV Vaccines Aged Out No longer eligi ble based on patient's age to complete this topic IPV Vaccines Aged Out No longer eligi ble based on patient's age to complete this topic MMR Vaccines Aged Out No longer eligi ble based on patient's age to complete this topic Meningococcal ACWY Vaccine Aged Out N o longer eligible based on patient's age to complete this topic Meningococcal B Vaccine Aged Out No l onger eligible based on patient's age to complete this topic RSV Immunization Patients Under 20 months Aged Out No longer eligible based on patient's age to complete this topic Varicella Vaccines Aged Out No longer eligible based on patient's age to complete this topic Procedures Procedure Name Priority Date/Time Associated Diagnosis Comments ECG ANNOTATED 08/07/2025 TROPONIN I HIGH SENSITIVITY Timed 08/05/2025 3:18 PM EST COMPREHENSIVE METABOLIC PANEL STAT 08/05/2025 3:18 PM EST XR CHEST 2 VIEWS STAT 08/05/2025 2:08 PM EST CBC WITH AUTO DIFFERENTIAL STAT 08/05/2025 2:01 PM EST ACTIVATED PARTIAL THROMBOPLASTIN TIME STAT 08/05/2025 2:01 PM EST PROTHROMBIN TIME WITH INR STAT 08/05/2025 2:01 PM EST D-DIMER STAT 08/05/2025 2:01 PM EST TROPONIN I HIGH SENSITIVITY Timed 08/05/2025 2:01 PM EST CBC AND DIFFERENTIAL STAT 08/05/2025 2:01 PM EST ECG 12-LEAD STAT 08/05/2025 12:39 PM EST SST - GOLD Routine 08/05/2025 12:00 AM EST EXTRA TUBES Routine 08/05/2025 12:00 AM EST from Last 3 Months Results * ECG-Annotated (08/07/2025) us Provider Onbase MD ECG ORDERABLES Final Result * Troponin I high sensitivity (NOW and then in 1 hour) (08/05/2025 3:18 PM EST) Only the most recent of2 resultswithin the time period is included. High Sensitivity Troponin I 15 <=34 ng/L 08/05/2025 3:47 PM EST [facility] ([facility]) [facility] Blood Venous blood specimen / Unknown Venipuncture / Unknown 08/05/2025 3:18 PM EST 08/05/2025 3:23 PM EST us Mag Haile MD LAB BLOOD ORDERABLES Final Resul t [facility] [address] [place] [address], * (ABNORMAL) Comprehensive metabolic panel (08/05/2025 3:18 PM EST) Sodium 138 133 - 145 mmol/L 08/05/2025 3:48 PM [facility] Potassium 4.3 3.5 - 5.5 mmol/L 08/05/2025 3:48 PM [facility] Chloride 102 96 - 110 mmol/L 08/05/2025 3:48 PM [facility] CO2 26 21 - 32 mmol/L 08/05/2025 3:48 PM [facility] Anion Gap 10 3 - 11 08/05/2025 3:48 PM [facility] Glucose 72 70 - 100 mg/dL 08/05/2025 3:48 PM [facility] BUN 14 5 - 25 mg/dL 08/05/2025 3:48 PM [facility] Creatinine 0.96 0.50 - 1.10 mg/dL 08/05/2025 3:48 PM [facility] eGFR 65 >=60 mL/min/1. 73m2 08/05/2025 3:48 PM [facility] Comment:Calculation based on the Chronic Kidney Disease Epidemiology Collaboration (CKD-EPI) equation refit without adjustment for race. BUN/Creatinine Ratio 14.6 08/05/2025 3:48 PM [facility] Calcium 9.1 8.5 - 10.5 mg/dL 08/05/2025 3:48 PM [facility] AST (SGOT) 24 10 - 42 unit/L 08/05/2025 3:48 PM EST [facility] ALT (SGPT) 12 10 - 60 unit/L 08/05/2025 3:48 PM EST [facility] Alkaline Phosphatase 131(H) 42 - 121 unit/L 08/05/2025 3:48 PM EST [facility] Total Protein 7.4 6.0 - 8.0 g/dL 08/05/2025 3:48 PM EST [facility] Albumin 4.3 3.2 - 5.0 g/dL 08/05/2025 3:48 PM [facility] Total Bilirubin 0.6 0.0 - 1.4 mg/dL 08/05/2025 3:48 PM [facility] Blood Venous blood specimen / Unknown Venipuncture / Unknown 08/05/2025 3:18 PM EST 08/05/2025 3:23 PM EST us Mag Haile MD LAB BLOOD ORDERABLES Final Resul t [facility] [address] [place] [address], * XR Chest 2 Views (08/05/2025 2:08 PM EST) Anatomical Region Laterality Modality Body Radiographic Amalia ging 08/05/2025 2:19 PM EST Impressions 08/05/2025 2:21 PM EST Minimal atelectasis scarring in the lingula. -------- FINAL REPORT -------- Dictated By: Seth Hardwick Dictated Date: 08/05/2025 14:19 ET Assigned Physician: Seth Hardwick Reviewed and Electronically Signed By: Seth Hardwick Signed Date: 08/05/2025 14:21 ET Workstation ID: [id number] Transcribed By: Self Edit Transcribed Date: 08/05/2025 [...] Signed Date: 08/05/2025 14:21 ET Workstation ID: [id number] Transcribed By: Self Edit Transcribed Date: 08/05/2025 14:19 ET Mag Haile MD IMG XR PROCEDURES Final Result * (ABNORMAL) CBC auto differential (08/05/2025 2:01 PM EST) WBC 4.9 4.8 - 10.8 K/mcL LAB HEMETOLOGY METHOD 08/05/2025 2:13 PM [facility] RBC 4.50 3.80 - 4.80 M/mcL LAB HEMETOLOGY METHOD 08/05/2025 2:13 PM [facility] Hemoglobin 12.7 11.5 - 16.0 g/dL LAB HEMETOLOGY METHOD 08/05/2025 2:13 PM [facility] Hematocrit 39.5 35.0 - 47.0 % LAB HEMETOLOGY METHOD 08/05/2025 2:13 PM [facility] MCV 88.2 79.0 - 98.0 FL LAB HEMETOLOGY METHOD 08/05/2025 2:13 PM [facility] MCH 28.3 27.0 - 32.0 pcg LAB HEMETOLOGY METHOD 08/05/2025 2:13 PM [facility] MCHC 32.2 32.0 - 37.0 g/dL LAB HEMETOLOGY METHOD 08/05/2025 2:13 PM [facility] RDW 14.6 11.0 - 15.0 % LAB HEMETOLOGY METHOD 08/05/2025 2:13 PM [facility] Platelets 167 130 - 400 K/mcL LAB HEMETOLOGY METHOD 08/05/2025 2:13 PM [facility] MPV 12.9(H) 7.0 - 11.0 FL LAB HEMETOLOGY METHOD 08/05/2025 2:13 PM [facility] NRBC 0.0 <1.0 % LAB HEMETOLOGY METHOD 08/05/2025 2:13 PM [facility] NRBC Absolute 0.00 <0.10 K/mcL LAB HEMETOLOGY METHOD 08/05/2025 2:13 PM [facility] Neutrophils Relative 63.7 % LAB HEMETOLOGY METHOD 08/05/2025 2:13 PM [facility] Lymphocytes Relative 27.0 % LAB HEMETOLOGY METHOD 08/05/2025 2:13 PM [facility] Monocytes Relative 6.5 % LAB HEMETOLOGY METHOD 08/05/2025 2:13 PM [facility] Eosinophils Relative 1.6 % LAB HEMETOLOGY METHOD 08/05/2025 2:13 PM [facility] Basophils Relative 1.0 % LAB HEMETOLOGY METHOD 08/05/2025 2:13 PM [facility] Immature Granulocytes Relative 0.2 % LAB HEMETOLOGY METHOD 08/05/2025 2:13 PM EST [facility] Neutrophils Absolute 3.13 1.50 - 7.00 K/mcL LAB HEMETOLOGY METHOD 08/05/2025 2:13 PM EST [facility] Lymphocytes Absolute 1.33 1.00 - 5.00 K/mcL LAB HEMETOLOGY METHOD 08/05/2025 2:13 PM EST [facility] Monocytes Absolute 0.32 0.20 - 1.00 K/mcL LAB HEMETOLOGY METHOD 08/05/2025 2:13 PM EST [facility] Eosinophils Absolute 0.08 0.00 - 0.50 K/[facility] LAB HEMETOLOGY METHOD 08/05/2025 2:13 PM EST [facility] Basophils Absolute 0.05 0.00 - 0.20 K/mcL LAB HEMETOLOGY METHOD 08/05/2025 2:13 PM EST [facility] Immature Granulocytes Absolute 0.01 0.00 - 0.03 K/[facility] HEMETOLOGY METHOD 08/05/2025 2:13 PM EST [facility] Blood Venous blood specimen / Unknown Venipuncture / Unknown 08/05/2025 2:01 PM EST 08/05/2025 2:09 PM EST us Mag Haile MD LAB BLOOD ORDERABLES Final Resul t [facility] [address] [place] [address], * (ABNORMAL) APTT (08/05/2025 2:01 PM EST) aPTT 52.5(H) 24.1 - 39.3 sec LAB COAGULATION METHOD 08/05/2025 2:29 PM EST [facility] Blood Venous blood specimen / Unknown Venipuncture / Unknown 08/05/2025 2:01 PM EST 08/05/2025 2:09 PM EST us Mag Haile MD LAB BLOOD ORDERABLES Final Resul t [facility] [address] [place] [address], [place] [phone] * (ABNORMAL) Prothrombin time with INR (08/05/2025 2:01 PM EST) Pathologist [facility] Protime 34.7(H) 10.6 - 13.9 sec LAB COAGULATION METHOD 08/05/2025 2:28 PM EST [facility] INR 2.8 LAB COAGULATION METHOD 08/05/2025 2:28 PM EST [facility] Blood Venous blood specimen / Unknown Venipuncture / Unknown 08/05/2025 2:01 PM EST 08/05/2025 2:09 PM EST us Mag Haile MD LAB BLOOD ORDERABLES Final Resul t Performing Organization Address City/[facility]/ZIP Co de Phone Number [facility] [address] [place] [address], [place] [phone] * D-dimer, quantitative (08/05/2025 2:01 PM EST) [facility] D-Dimer, Quant (D-DU) <150 <=230 ng/mL DDU LAB COAGULATION METHOD 08/05/2025 2:29 PM EST [facility] Blood Venous blood specimen / Unknown Venipuncture / Unknown 08/05/2025 2:01 PM EST 08/05/2025 2:09 PM EST Narrative [facility] - 08/05/2025 2:29 PM EST D-Dimer <230 ng/mL (D-Dimer units) is the threshold for exclusion of DVT/PE. D-Dimer may be elevated in: Critically ill, severely infected, trauma patients, DIC, acute CVA, acute TN, unstable angina, AF, old age, , and smoking. D-Dimer may be decreased with: Initiation of heparin therapy and oral anticoagulants. us Mag Haile MD LAB BLOOD ORDERABLES Final Resul t Performing Organization Address [facility] Co de Phone Number [facility] [address] [place] [address], [place] [phone] * ECG 12 lead (08/05/2025 12:39 PM EST) Ventricular Rate ECG 72 BPM GEMUSE Atrial Rate 72 BPM GEMUSE P-R Interval 190 ms GEMUSE QRS Duration 92 ms GEMUSE Q-T Interval 434 ms GEMUSE QTc 475 ms GEMUSE P Wave [place] 57 degrees GEMUSE R [place] 49 degrees GEMUSE T [place] 43 degrees GEMUSE ECG Interpretation Normal sinus rhythm Normal ECG When compared with ECG of 27-AUG-2001 07:55, Sinus rhythm has replaced Atrial fibrillation Confirmed by ROSHNI CHILDERS ([id number]) on 08/06/2025 2:41:35 PM GEMUSE 08/05/2025 12:3 9 PM EST 08/06/2025 2:41 PM EST us Mag Haile MD ECG ORDERABLES Final Result Performing Organization Address [facility] Phone Number GEMUSE * SST tube (08/05/2025 12:00 AM EST) Extra Tube Hold for add-ons. 08/05/2025 5:01 PM EST [facility] Comment:Auto resulted. 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
== END 2025-08-07 11:14 | disposition home or self-care (01) ==
LOC: HO.ACS 11:00
PROVIDERS: PCP Nurse Practitioner Family; Visit Provider Internal Medicine Medical Oncology
DX: Z79.01 Long term (current) use of anticoagulants (principal)

== ENCOUNTER → 2025-08-07 11:00 | Outpatient (BNVA) | payer MEDICARE, MEDICAID, SELFPAY | PROVIDERS: PCP Nurse Practitioner Family; Visit Provider Internal Medicine Medical Oncology | DX: Z95.2 Presence of prosthetic heart valve (principal); Z51.81 Encounter for therapeutic drug level monitoring; Z79.01 Long term (current) use of anticoagulants | CPT/HCPCS: 85610; 99211 ==